=== PATIENT | male | born 1950 | race Caucasian/White ===

== ENCOUNTER → 2018-07-29 14:31 | Outpatient (CLI) | payer MEDICARE, BC, SELFPAY ==
[2018-07-29 16:06] LABS: Add Manual Diff / Slide Review NO; Basophils Percent Auto 0.5 % (0-2); Eosinophils Percent Auto 1.2 % (2-4); Hematocrit 47.1 % (41-53); Hemoglobin 16.8 g/dL (13.5-17.5); Lymphocytes Percent Auto 14.7 % (25-40); Mean Corpuscular HGB Conc 35.7 % (30-36); Mean Corpuscular Volume 97.9 fL (80-100); Monocytes Percent Auto 7.5 % (3-14); Neutrophils Absolute Auto 7200 /uL (3000-5900); Neutrophils Percent Auto 76.1 % (50-75); Platelet Count 169 X10^3/uL (150-400); Red Blood Cell Count 4.82 X10^6/uL (4.5-5.9); Red Cell Distribution Width 13.2 % (11.6-14.8); White Blood Cell Count 9.4 X10^3/uL (4.5-11.0)
[2018-07-29 16:23] LABS: Alanine Aminotransferase 65 IU/L (21-72); Albumin 4.5 g/dL (3.5-5.0); Albumin Globulin Ratio 1.7 (1.0-2.8); Alkaline Phosphatase 75 U/L (38-126); Aspartate Aminotransferase 49 IU/L (17-59); BUN Creatinine Ratio 21.7 (6-22); Bilirubin Total 0.8 mg/dL (0.2-1.3); Blood Urea Nitrogen 26 mg/dL (9-20); Calcium 9.6 mg/dL (8.4-10.2); Carbon Dioxide 31 mmol/L (22-32); Chloride 97 mmol/L (98-107); Cholesterol 202 mg/dL (140-199); Estimated Glomerular Filt Rate > 60.0 mL/min (>60); Globulin 2.6 g/dL (1.7-4.1); Glucose 97 mg/dL (80-110); HDL Cholesterol 59 mg/dL (40-60); HEMOLYSIS < 15 (0-50); LDL Cholesterol Calculated 99 mg/dL (<100); Potassium 4.2 mmol/L (3.4-5.1); Sodium 141 mmol/L (137-145); Total Protein 7.1 g/dL (6.3-8.2); Triglycerides 220 mg/dL (35-150); Uric Acid 5.9 mg/dL (3.5-8.5)
== END ==
PROVIDERS: PCP Internal Medicine; Visit Provider Internal Medicine
DX: C18.9 Malignant neoplasm of colon, unspecified (principal); M10.9 Gout, unspecified; E78.2 Mixed hyperlipidemia
CPT/HCPCS: 36415; 80053; 80061; 84550; 85025

== ENCOUNTER → 2018-12-03 09:23 | Outpatient (CLI) | payer MEDICARE, BC, SELFPAY ==
--- NOTE | 2018-12-03 | DI.MRI.S_ITS ---
PROCEDURE: MR LUMBAR SPINE WO CON INDICATIONS: LOW BACK PAIN TECHNIQUE: Noncontrast sagittal T1 spin echo and T2 fast echo, sagittal STIR, axial T1 and T2 fast spin echo through the lumbar spine. In cases with scoliosis, additional coronal T2 fast spin echo may be performed. COMPARISON: [facility], MR, L-SPINE WITHOUT CONTRAST, 06/14/2014, 11:05. FINDINGS: Image quality: Excellent. Alignment and Curvature: There is normal bony alignment. Bone Marrow: Reactive endplate changes noted adjacent the L1-L2, L2-L3, L3-L4 and L4-L5 discs. No acute vertebral body compression fractures. Spinal Cord: Conus medullaris terminates at the T12 level. Visualized cord demonstrates normal signal and size. Paraspinous Soft Tissues: No paravertebral masses. L1-L2: Loss of disc signal. Mild, diffuse disc bulge. Mild narrowing of the central canal. Mild to moderate bilateral neural foraminal narrowing. No neural impingement. L2-L3: Loss of disc signal and height. Mild, diffuse disc bulge. Mild narrowing of the central canal. Mild to moderate right and moderate left neural foraminal narrowing. No neural impingement. L3-L4: Loss of disc signal. Mild, diffuse disc bulge. Mild facet arthropathy. No central stenosis. Mild bilateral neural foraminal narrowing. No neural impingement. L4-L5: Loss of disc signal and height. Mild, diffuse disc bulge. Mild facet arthropathy. Small right central disc protrusion. Disc protrusion abuts and displaces the traversing right L5 nerve root. Mild narrowing of the central canal. Moderate right and mild to moderate left neural foraminal narrowing. L5-S1: Loss of disc signal. Mild facet arthropathy. No central stenosis. No neural foraminal narrowing. No neural impingement. IMPRESSION: 1. Multilevel degenerative disc disease and facet arthropathy. 2. Mild L1-L2, L2-L3 and L4 L5 central none. 3. Moderate right and mild to moderate left L4-L5 neural foraminal narrowing. Mild to moderate right and moderate left L2-L3 neural foraminal narrowing. Mild to moderate bilateral L1-L2 neural foraminal narrowing. Mild bilateral L3-L4 neural foraminal narrowing. 4. L4-L5 right central disc protrusion which abuts and displaces the traversing right L5 nerve root. Please correlate with clinical data. Dictated by: Charo Jalloh MD, PhD on 12/03/2018 at 13:33 Approved by: Charo Jalloh MD, PhD on 12/03/2018 at 13:42
--- NOTE | 2018-12-03 | DI.ECHO.S_ITS ---
[facility]---------+ [facility] +---------+ : : [address] : [place] : : : : [id number] : : : : Phone: [phone]+ Echocardiogram Report + + :Name: EVANGELINA GUSMAN Study Date: 12/03/2018 Height: 71 in : :[facility] Weight: 222 lb : : Gender: Male BSA: 2.2 m2 : :: 1950 Age: 68 yrs BP: 118/70 mmHg: :Reason For Study: Aortic, Ascending Aneurysm : : Performed By: Tammie Crook : :Referring: STEVEN ESTRELLA : + + Interpretation Summary 1) Normal left ventricular thickness, size, wall motion, and systolic function (EF 60-65%). 2) Normal right ventricular size and function. 3) No significant valvular abnormalities. 4) The ascending aorta is mildly enlarged at 4.0cm. Stable since prior few echos. 5) Compared to the Echo done 12/03/2016, no significant change. Procedure: A two-dimensional transthoracic echocardiogram with color flow and Doppler was performed. The study quality was technically adequate. Comparison is made with the echocardiogram of 12-03-16. The patient was in normal sinus rhythm during the exam. Left Ventricle: The left ventricle is normal in size, wall thickness, and systolic function without any focal wall motion abnormalities. The ejection fraction is estimated to be 60-65%. Diastolic parameters suggest probable normal left ventricular diastolic function and normal filling pressures. Right Ventricle: The right ventricle grossly appears normal in size with probable normal systolic function. Atria: The left atrial size is normal. Right atrial size is normal. The interatrial septum is intact with no evidence for an atrial septal defect. Mitral Valve: There is a flat closure plane of the the mitral valve leaflets. There is mild mitral regurgitation. Aortic Valve: The aortic valve is trileaflet. The aortic valve opens well. No aortic regurgitation is present. Tricuspid Valve: The tricuspid valve is normal in structure and function. There is a trace or physiologic amount of tricuspid regurgitation. The right ventricular systolic pressure is estimated to be at least 22 mmHg based on an estimated right atrial pressure of 3 mm Hg. Pulmonic Valve: The pulmonic valve is not well seen, but is grossly normal. There is trace pulmonic regurgitation. Great Vessels: The aortic root is normal size. The ascending aorta is mildly enlarged. The aortic arch is normal in size. The last thre echo measurments of the ascending aorta were, 4.0, 4.2, and 4.0 cm. The mildly enlarged ascending aorta appears stable. The inferior vena cava was not visualized. Pericardium/ Pleura There is no pericardial effusion. There is no pleural effusion. MMode/2D Measurements & Calculations LVIDd: 4.6 cm Ao root diam: 3.9 cm LVIDs: 3.4 cm Aortic Jxn: 3.3 cm FS: 27.0 % asc Aorta Diam: 4.0 cm EPSS: 0.63 cm Ao Arch Diam (Prox Trans): 2.0 cm IVSd: 0.94 cm LVPWd: 0.84 cm LV lobo. diameter/BSA (cm/m^2): 2.1 LV sys. diameter/BSA (cm/m^2): 1.5 LA dimension: 3.9 cm RA long axis: 4.3 cm LA A2 area: 19.7 cm2 RA area: 15.1 cm2 LA A4 area: 21.2 cm2 RA vol: 45.4 ml LA length (vol): 5.2 cm RA : 20.6 ml/m2 LA vol: 68.2 ml LA vol index: 30.9 ml/m2 Doppler Measurements & Calculations Ao V2 max: 144.7 cm/sec MV E max miguel: 79.1 cm/sec Ao V2 mean: 86.9 cm/sec MV A max miguel: 58.1 cm/sec Ao max P.4 mmHg MV E/A: 1.4 Ao mean P.6 mmHg Med Peak E' Miguel: 7.7 cm/sec Ao V2 VTI: 24.6 cm E/E' med: 10.3 Lat Peak E' Miguel: 8.3 cm/sec E/E' lat: 9.5 E/e' average: 9.9 MV dec time: 0.22 sec MV P1/2t: 67.3 msec TR max miguel: 219.1 cm/sec MV P1/2t max miguel: 77.8 cm/sec TR max P.2 mmHg MVA(P1/2t): 3.3 cm2 PA V2 max: 82.4 cm/sec PA V2 mean: 55.0 cm/sec PA mean P.4 mmHg PA Accel Time: 0.11 sec Reading Physician:01:34 PM
== END ==
PROVIDERS: PCP Internal Medicine; Visit Provider Internal Medicine
DX: I71.2 Thoracic aortic aneurysm, without rupture (principal); I34.0 Nonrheumatic mitral (valve) insufficiency; M54.5 Low back pain; M51.36 Other intervertebral disc degeneration, lumbar region; M48.061 Spinal stenosis, lumbar region without neurogenic claudication; M47.816 Spondylosis without myelopathy or radiculopathy, lumbar region; M47.817 Spondylosis without myelopathy or radiculopathy, lumbosacral region
CPT/HCPCS: 72148; 93306

== ENCOUNTER 2019-05-11 04:39 | Emergency (ER) | payer MEDICARE, BC, SELFPAY ==
[2019-05-11 04:40] VITALS: BP 130/96; PULSE 90; RESP 16; TEMP 36.6; O2SAT 96; BMI 30.4
--- NOTE | 2019-05-11 04:48 | ED_ITS ---
HPI - Fall General Chief Complaint: Skin/Abscess/Foreign Body Stated Complaint: needs stitches in forehead Time Seen by Provider: 05/11/19 04:45 Source: patient and family () Mode of arrival: ambulatory Limitations: no limitations History of Present Illness HPI Narrative: This is a 68-year-old male comes to the emergency department with complaint of ground level fall. Patient states that he was getting out of bed, he tripped and fell striking his forehead on a corner of a dresser. Patient did not lose consciousness, he denies headache currently, he has some pain at the site. He did clean himself of afterwards. He denies any vision changes, no nausea no vomiting. No altered mental status. He denies any new neck or new back pain. Patient has chronic back pain with radiculopathy. Patient states th at that is not worse at this time. He denies any chest pain or shortness of breath. Patient is not on any blood thinners, he does take Mobic daily. Related Data Home Medications Medication Instructions Recorded Confirmed allopurinol 100 mg tablet 200 mg PO DAILY 02/02/19 02/02/19 metoprolol succinate 100 mg 100 mg PO DAILY 02/02/19 02/02/19 tablet,extended release 24 hr cholecalciferol (vitamin D3) 10,000 unit PO DAILY 02/03/19 02/03/19 10,000 unit capsule finasteride 5 mg tablet 5 mg PO DAILY 02/03/19 02/03/19 meloxicam 15 mg tablet 15 mg PO DAILY 02/03/19 02/03/19 omeprazole 20 mg capsule,delayed 20 mg PO DAILY PRN 02/03/19 02/02/19 release Allergies Allergy/AdvReac Type Severity Reaction Status Date / Time penicillin G [PENICILLIN G] Allergy Unknown Unverified 02/03/19 13:10 Review of Systems Review of Systems ROS Unobtainable: All systems reviewed & are unremarkable except as noted in HPI and below Exam Narrative Exam Narrative: GEN: Patient appears in mild distress. HEAD: Patient has a laceration at the forehead just medial to the left brow that is 2.1 cm in length and gaps several mm. No hematoma or other skin changes are noted, no raccoon/Rm sign. NECK: Nontender, painless range of motion, trachea midline Negative for Nexus criteria, there is no mid line tenderness, distracting injury, altered mental status, neuro deficit, recent EtOH. EYES: PERRLA, EOMI ENT: External inspection normal except as above, trachea is midline, TM's are normal no hemotypanum, Nares are clear, no septal hematoma, no dental or oral injury, airway is normal and with normal occlusion, No bony tenderness to face. RESP: Chest is nontender and has symmetric movement, no ecchymosis, breath sounds are normal no crackles, wheezes or rales CVS: Heart sounds are normal, no murmur noted, No JVD. ABG/GI: Nontender, soft, normal bowel sounds, no distention, no organomegaly, pelvic rock is negative NEURO: Oriented AOx3, neuro is grossly intact, sensation and motor is normal all 4 extremities moving, cranial nerves II through XII are intact, GCS is 15. Normal gait. PSYCH: Normal mood and affect SKIN: Intact except as above, warm and dry, no crepitus and without decubitus BACK: No CVA tenderness, patient has mild L3/4 vertebral tenderness, patient states this is normal for him, no step-off's, no crepitus. Full ROM. EXT: Atraumatic, hips are nontender, no pedal edema, normal color and temperature, normal range of motion of extremities Initial Vital Signs Initial Vital Signs: Vital Signs Temperature 97.8 F 05/11/19 04:40 Pulse Rate 90 05/11/19 04:40 Respiratory Rate 16 05/11/19 04:40 Blood Pressure 130/96 H 05/11/19 04:40 Pulse Oximetry 96 05/11/19 04:40 [facility] Medical History Alcohol dependence (Chronic) GERD (gastroesophageal reflux disease) (Chronic) Gouty arthritis (Chronic) History of colon cancer in adulthood (Inactive) History of pulmonary embolism (Inactive) Hypertension (Chronic) Obstructive sleep apnea of adult (Chronic) Surgical History History of right hemicolectomy (Resolved) Social History (Updated 02/07/19 @ 21:05 by ISHAAN Mcclelland) marital status: details: to Patricia, lives in [place] number of children: 3 household members: spouse lives independently: Yes caregiver/support person: No housing: house education level: other occupational status: unemployed 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 leisure activities: other other: I have a passion for maddie seatbelt use: always alcohol intake: current caffeine: Yes (1 cup in AM) Social History marital status: details: milly Gomez, lives in [place] number of children: 3 household members: spouse lives independently: Yes caregiver/support person: No housing: house education level: other occupational status: unemployed 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 leisure activities: other other: I have a passion for maddie seatbelt use: always Smoking Status: Never smoker alcohol intake: current caffeine: Yes (1 cup in AM) Procedures Laceration Repair Laceration 1: Site: face Size (cm): 2.1 Description: linear Depth: simple, single layer Local Anesthetic: lidocaine 1% Amount of anesthesia used (mL): 3 Pre-repair: wound explored, irrigated extensively and deep structures intact Skin layer closed with: vicryl Size (cm): 5-0 Number of sutures: 5 Technique: simple, interrupted Scores GCS Terell coma scale eye opening: Spontaneous [place] coma scale verbal response: Orientated [place] coma scale motor response: Obey commands [place] coma scale total score: 15 Course Orders Ordered: Discontinued Medications Lidocaine/Sodium Bicarbonate (Buffered Lidocaine 10 Ml Syr) 10 ml INJ NOW ONE Stop: 05/11/19 04:57 Last Admin: 05/11/19 05:33 Dose: 3 ml Documented by: ABDIRASHID Vital Signs Vital signs: Vital Signs - 8 hr 05/11/19 04:40 Temperature 97.8 F Pulse Rate 90 Respiratory Rate 16 Blood Pressure 130/96 H Pulse Oximetry 96 MDM - Fall MDM Narrative Medical decision making narrative: Patient tolerated procedure well, he is not on thinners and has laceration, CT imaging was deferred. patient had tenderness on palpation of lumbar spine, patient states this is normal for him and not wor sened from baseline. Patient has normal gait with no neurologic changes. Laceration was repaired with good alignment. Patient has home pain medications and discussed wound care and follow up. Discharge Plan Departure Patient Disposition: Home Clinical Impression: Facial laceration Discharge Date/Time: 05/11/19 05:39 Instructions: DI for Laceration Repair -- Simple Activity Restrictions/Additional Instructions: Wound Care: Keep wound(s) clean and dry. Wash daily with soap and water only. Do not use over the counter products (alcohol or peroxide)on the wounds unless instructed by a physician. If wound condition worsens (increased/expanding redness, developing fluid blisters, or worsening pain), either contact your doctor for an urgent re- assessment , or return to the Emergency Department. Return to the ED, urgent care, or vist a primary care doctor for removal or suture or colleen in 5-7 days if they are not absorbing. Return if fever greater than 100.4 Fahrenheit, increased swelling, increasing pain or worsening symptoms such as increased discharge or spreading redness. Altered mental status, sudden severe headaches, new vision changes, persistent vomiting, new neck or back pain, new weakness or numbness, loss of sensation that is new or other new or concerning symptoms. Prescriptions: No Action metoprolol succinate 100 mg tablet extended release 24 hr 100 mg PO DAILY RF: 0 allopurinol 100 mg tablet 200 mg PO DAILY RF: 0 omeprazole 20 mg capsule,delayed release(DR/EC) 20 mg PO DAILY PRNRF: 0 cholecalciferol (vitamin D3) 10,000 unit capsule 10,000 unit PO DAILY RF: 0 finasteride 5 mg tablet 5 mg PO DAILY RF: 0 meloxicam [Mobic] 15 mg tablet 15 mg PO DAILY RF: 0 Referrals: Lorenzo Coreas MD [Primary Care Provider] -
--- NOTE | 2019-05-11 05:16 | PC.NURSE ---
Dr. Hopper at bedside to suture.
[2019-05-11] MEDS: LIDO 1%/SOD BICARB 8.4% (10ML) 10 ML SYRINGE INJ (05:33)
[2019-05-11 05:39] VITALS: BP 128/68; PULSE 75; RESP 16; O2SAT 96
== END 2019-05-11 05:39 | disposition home or self-care (01) ==
PROVIDERS: Emergency Provider Emergency Medicine; PCP Internal Medicine
DX: S01.81XA Laceration without foreign body of other part of head, initial encounter (principal); W01.190A Fall on same level from slipping, tripping and stumbling with subsequent striking against furniture, initial encounter
CPT/HCPCS: 12011; 99282; 99283

== ENCOUNTER → 2019-05-13 16:00 | Outpatient (CLI) | payer MEDICARE, BC, SELFPAY ==
--- NOTE | 2019-05-13 | DI.RAD.S_ITS ---
PROCEDURE: XR HIP W PEL IF DONE LT MIN 4V INDICATIONS: Pain in HAR[place] hips TECHNIQUE: AP pelvis with lateral view(s) of the left and right hip(s). COMPARISON: None. FINDINGS: Bones: No fractures or dislocations. Pelvic ring appears intact. No suspicious bony lesions. Mild joint narrowing with periarticular osteophyte formation of the hip joints bilaterally. Degenerative disc and facet disease involves the inferior lumbar spine. Soft tissues: The visualized bowel gas pattern is normal. No suspicious soft tissue calcifications. Vastectomy clips. IMPRESSION: Mild symmetric hip joint degeneration. Dictated by: Kenton KEBEDE Interpreted: Mattie Garcia MD on 05/13/2019 at 16:24 Approved by: Mattie Garcia M.D. on 05/13/2019 at 16:50
== END ==
PROVIDERS: PCP Internal Medicine; Visit Provider Internal Medicine
DX: M25.551 Pain in right hip (principal); M25.552 Pain in left hip; M16.0 Bilateral primary osteoarthritis of hip
CPT/HCPCS: 73522

== ENCOUNTER 2019-08-16 12:18 | Emergency (ER) | payer MEDICARE, BC, SELFPAY ==
[2019-08-16] VITALS (10 sets, daily range): BP systolic 92–120; BP diastolic 44–69; PULSE 70–90; RESP 13–24; TEMP 36.8; O2SAT 94–99
--- NOTE | 2019-08-16 13:04 | DI.RAD.S_ITS ---
PROCEDURE: XR CHEST 2V INDICATIONS: shortness of breath TECHNIQUE: 2 views of the chest were acquired. COMPARISON: None. FINDINGS: Surgical changes and devices: None. Lungs and pleura: Calcific density projects over the left lower lung. Lungs are otherwise clear. No pleural effusions or pneumothorax. Mediastinum: Mediastinal contours are normal. Heart size is normal. Bones and chest wall: No suspicious bony abnormalities. Soft tissues appear unremarkable. IMPRESSION: No acute process. Dictated by: Rachelle Kelsey M.D. on 08/16/2019 at 13:41 Approved by: Rachelle Kelsey M.D. on 08/16/2019 at 13:42
[2019-08-16 13:28] LABS: Add Manual Diff / Slide Review NO; Basophils Absolute Auto 0 /uL (0-100); Basophils Percent Auto 0.3 % (0-2); Eosinophils Absolute Auto 100 /uL (0-450); Eosinophils Percent Auto 0.8 % (2-4); Hematocrit 46.4 % (41-53); Hemoglobin 16.1 g/dL (13.5-17.5); Lymphocytes Absolute Auto 1200 /uL (1100-4500); Lymphocytes Percent Auto 14.6 % (25-40); Mean Corpuscular HGB Conc 34.7 % (30-36); Mean Corpuscular Hemoglobin 34.3 PG (26-34); Mean Corpuscular Volume 98.8 fL (80-100); Monocytes Absolute Auto 500 /uL (0-900); Monocytes Percent Auto 6.3 % (3-14); Neutrophils Absolute Auto 6600 /uL (1500-7000); Platelet Count 158 X10^3/uL (150-400); Red Cell Distribution Width 13.3 % (11.6-14.8); White Blood Cell Count 8.4 X10^3/uL (4.5-11.0)
[2019-08-16 13:37] LABS: Lactate (Lactic Acid) 1.8 mmol/L (0.7-2.1)
--- NOTE | 2019-08-16 13:41 | ED_ITS ---
HPI - General Adult General Chief complaint: Dizziness Stated complaint: SOB DIZZY Time Seen by Provider: 08/16/19 13:16 Source: patient Mode of arrival: Ambulatory History of Present Illness HPI narrative: 68-year-old gentleman with a history of resected colon cancer with associated pulmonary embolism 10 years ago, hypertension, alcohol use disorder and erectile dysfunction. This morning after taking Viagra approximately 2 hours later noted significant exertional dyspnea. He and his were working in the [employer] he became quite short of breath had to sit down to approximately 10-15 minutes to feel like he was back to normal couple of episodes of recurrence is without chest pain or diaphoresis. He states that the dyspneic sensation was worse today than it was when he had his pulmonary embolism a number of years ago. When he presents to the emergency department he is relatively hypotensive with a systolic blood pressure in the 90s, in normal sinus rhythm, maintaining his airway and able to speak in full sentences and give a coherent history Related Data Home Medications Medication Instructions Recorded Confirmed allopurinol 100 mg tablet 200 mg PO DAILY 02/02/19 08/16/19 metoprolol succinate 100 mg 100 mg PO DAILY 02/02/19 08/16/19 tablet,extended release 24 hr cholecalciferol (vitamin D3) 10,000 unit PO DAILY 02/03/19 08/16/19 10,000 unit capsule finasteride 5 mg tablet 5 mg PO DAILY 02/03/19 08/16/19 omeprazole 20 mg capsule,delayed 20 mg PO DAILY PRN 02/03/19 08/16/19 release olmesartan-hydrochlorothiazide 1 tab PO DAILY 08/16/19 08/16/19 sildenafil (pulm.hypertension) 40 mg PO DIRECTED 08/16/19 08/16/19 Allergies Allergy/AdvReac Type Severity Reaction Status Date / Time penicillin G [PENICILLIN G] Allergy Unknown Unverified 02/03/19 13:10 Review of Systems Review of Systems Narrative: Denies ? fever ? cough ? cold ? chills ? chest pain ? orthopnea ? wheezing ? abdominal pain ? change to bowel or bladder habits ? nausea vomiting ? skin changes ? 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 Able to give a complete and coherent history. Well-nourished well-developed HEENT: Moist mucous membranes, normal sclera with reactive pupils, Neck: No JVD, supple Respiratory: Lungs are clear to auscultation, no wheezing no rales no rhonchi. Full and symmetrical air movement Cardiac: Regular rate and rhythm no murmurs no bruits Abdomen: Soft nontender good bowel tones, no flank pain Skin: Warm and dry, no rashes Neurologic: Grossly neurologically intact with no obvious asymmetries or abnormalities Extremities: No trauma, well perfused Psych: Cooperative, appropriate insight and affect Initial Vital Signs Initial Vital Signs: Vital Signs Temperature 98.2 F 08/16/19 12:45 Pulse Rate 90 08/16/19 12:45 Respiratory Rate 13 08/16/19 12:45 Blood Pressure 95/56 L 08/16/19 12:45 Pulse Oximetry 99 08/16/19 12:45 Course Orders Ordered: ED Orders 08/16/19 13:04 XR chest 2V Stat Measure peak expiratory flow ONCE RT Consult Eval and Treat Now 08/16/19 13:07 EKG-12 Lead Stat 08/16/19 13:12 Complete Blood Count AUTO DIFF Stat Comprehensive Metabolic Panel Stat Lactate (Lactic Acid) Stat 08/16/19 13:17 D Dimer Stat Troponin I Stat 08/16/19 15:32 Troponin I Stat Discontinued Medications Sodium Chloride (Normal Saline 0.9%) 500 mls @ 1,000 mls/hr IV BOLUS ONE Stop: 08/16/19 16:20 Last Admin: 08/16/19 16:08 Dose: Not Given Documented by: HFARRINGTO Sodium Chloride (Normal Saline 0.9%) 1,000 mls @ 1,000 mls/hr IV BOLUS ONE Stop: 08/16/19 17:03 Last Infusion: 08/16/19 17:15 Dose: 0 mls/hr Documented by: Admin: 08/16/19 16:05 Dose: 1,000 mls/hr Documented by: JADON Vital Signs Vital signs: Vital Signs - 8 hr 08/16/19 12:45 08/16/19 13:22 08/16/19 13:30 Temperature 98.2 F Pulse Rate 90 87 84 Respiratory Rate 13 24 18 Blood Pressure 95/56 L Blood Pressure [Left Arm] 114/69 93/49 L Pulse Oximetry 99 98 96 08/16/19 14:00 08/16/19 15:30 08/16/19 15:37 Temperature Pulse Rate 76 74 73 Respiratory Rate 19 20 15 Blood Pressure Blood Pressure [Left Arm] 100/44 L 108/54 L 108/54 L Pulse Oximetry 98 98 97 08/16/19 16:09 08/16/19 16:59 08/16/19 17:01 Temperature Pulse Rate 76 70 74 Respiratory Rate 21 19 18 Blood Pressure Blood Pressure [Left Arm] 120/62 102/58 L 92/44 L Pulse Oximetry 98 98 97 Medical Decision Making Medical Records Medical records reviewed: Yes I reviewed the patient's medical records. Lab Data Lab results reviewed: Yes I reviewed the patient's lab results. Lab results narrative: Worsening renal insufficiency increasing from 0.9-1.2 current 1.7 Initial Troponin is normal D-dimer is 208, suggesting low risk CT chest angio is not necessary Result diagrams: 08/16/19 13:12 08/16/19 13:12 Labs: Lab Results 08/16/19 08/16/19 08/16/19 Range/Units 13:12 13:12 13:12 WBC 8.4 (4.5-11.0) X10^3/uL RBC 4.70 (4.5-5.9) X10^6/uL Hgb 16.1 (13.5-17.5) g/dL Hct 46.4 (41-53) % MCV 98.8 (80-100) fL MCH 34.3 H (26-34) PG MCHC 34.7 (30-36) % RDW 13.3 (11.6-14.8) % Plt Count 158 (150-400) X10^3/uL Neut % (Auto) 78.0 H (50-75) % Lymph % (Auto) 14.6 L (25-40) % Pinal % (Auto) 6.3 (3-14) % Eos % (Auto) 0.8 L (2-4) % Baso % (Auto) 0.3 (0-2) % Neut # (Auto) 6600 (4679-0758) /uL Lymph # (Auto) 1200 (8402-3972) /uL Pinal # (Auto) 500 (0-900) /uL Eos # (Auto) 100 (0-450) /uL Baso # (Auto) 0 (0-100) /uL D-Dimer (<230) ng/mL Sodium 139 (137-145) mmol/L Potassium 4.4 (3.4-5.1) mmol/L Chloride 99 (98-107) mmol/L Carbon Dioxide 32 (22-32) mmol/L BUN 28 H (9-20) mg/dL Creatinine 1.70 H (0.66-1.25) mg/dL Estimated GFR 40.4 L (>60) mL/min BUN/Creatinine Ratio 16.5 (6-22) Glucose 108 (80-110) mg/dL Lactate 1.8 (0.7-2.1) mmol/L Calcium 9.7 (8.4-10.2) mg/dL Total Bilirubin 0.7 (0.2-1.3) mg/dL AST 56 (17-59) IU/L ALT 66 H (<50) IU/L Alkaline Phosphatase 77 (38-126) U/L Troponin I (0.01-0.034) ng/mL Total Protein 7.1 (6.3-8.2) g/dL Albumin 4.4 (3.5-5.0) g/dL Globulin 2.7 (1.7-4.1) g/dL Albumin/Globulin Ratio 1.6 (1.0-2.8) 08/16/19 08/16/19 08/16/19 Range/Units 13:17 13:17 15:32 WBC (4.5-11.0) X10^3/uL RBC (4.5-5.9) X10^6/uL Hgb (13.5-17.5) g/dL Hct (41-53) % MCV (80-100) fL MCH (26-34) PG MCHC (30-36) % RDW (11.6-14.8) % Plt Count (150-400) X10^3/uL Neut % (Auto) (50-75) % Lymph % (Auto) (25-40) % Pinal % (Auto) (3-14) % Eos % (Auto) (2-4) % Baso % (Auto) (0-2) % Neut # (Auto) (1328-1763) /uL Lymph # (Auto) (9783-8263) /uL Pinal # (Auto) (0-900) /uL Eos # (Auto) (0-450) /uL Baso # (Auto) (0-100) /uL D-Dimer 208 (<230) ng/mL Sodium (137-145) mmol/L Potassium (3.4-5.1) mmol/L Chloride (98-107) mmol/L Carbon Dioxide (22-32) mmol/L BUN (9-20) mg/dL Creatinine (0.66-1.25) mg/dL Estimated GFR (>60) mL/min BUN/Creatinine Ratio (6-22) Glucose (80-110) mg/dL Lactate (0.7-2.1) mmol/L Calcium (8.4-10.2) mg/dL Total Bilirubin (0.2-1.3) mg/dL AST (17-59) IU/L ALT (<50) IU/L Alkaline Phosphatase (38-126) U/L Troponin I < 0.012 < 0.012 (0.01-0.034) ng/mL Total Protein (6.3-8.2) g/dL Albumin (3.5-5.0) g/dL Globulin (1.7-4.1) g/dL Albumin/Globulin Ratio (1.0-2.8) Imaging Data Chest x-ray: Radiologist's impression: IMPRESSION: No acute process. Dictated by: Rachelle Kelsey M.D. on 08/16/2019 at 13:41 MDM Narrative Medical decision making narrative: 68-year-old gentleman presents with 3 episodes of exertional dyspnea this morning after taking Viagra followed by his typical blood pressure medications ( none of which involved nitrates). Workup for acute coronary syndrome as well as pulmonary embolism is benign. He currently is seeing his outpatient physician regarding worsening renal insufficiency and his creatinine has increased from 1.2-1.7. He is not orthostatic he is no longer dyspneic and remainder of workup is unremarkable. He is safe for home discharge and has a scheduled appointment with his primary care physician tomorrow morning Discharge Plan Departure Patient Disposition: Home Clinical Impression: Exertional dyspnea Instructions: DI for Shortness of Breath Activity Restrictions/Additional Instructions: Thank you for coming in today. It sounds like these episodes of exertional dyspnea earlier today were quite disconcerting. I found no life-threatening issues with your workup today. Specifically there is no evidence of recurrence pulmonary embolism and no evidence of acute heart attack or coronary type syndrome. There is no significant anemia nor dehydration. Your renal function has worsened slightly. You do have appropriate follow-up with your primary care doctor regarding this. At this time I think it is safe for you to go home. Please review your visit with Dr. Coreas at her scheduled appointment tomorrow. I wish you luck in the continued workup of the renal insufficiency We did briefly discuss your alcohol use disorder. There is a medicine called Vivitrol (naltrexone) that can help decrease cravings for alcohol and help maintain longer periods of sobriety. I would encourage you to look this up and do your own research. Please discuss it with Dr. Coreas. lf you need help finding another clinic to discuss beginning a course of Vivitrol, you can contact [facility]. They have offices in [place] as well as [place]. The phone number to reach them is [phone] If you have her current symptoms, developed any chest pain, fevers or persistent palpitations or dyspnea please feel free to return to the emergency department. I am happy to re-evaluate. It was a pleasure to meet you and I hope you do well Prescriptions: No Action olmesartan-hydrochlorothiazide 20-12.5 mg tablet 1 tab PO DAILY RF: 0 sildenafil (pulm.hypertension) 20 mg Tablet 40 mg PO DIRECTED RF: 0 metoprolol succinate 100 mg tablet extended release 24 hr 100 mg PO DAILY RF: 0 allopurinol 100 mg tablet 200 mg PO DAILY RF: 0 omeprazole 20 mg capsule,delayed release(DR/EC) 20 mg PO DAILY PRN (Reason: Acid Reflux) RF: 0 cholecalciferol (vitamin D3) 10,000 unit capsule 10,000 unit PO DAILY RF: 0 finasteride 5 mg tablet 5 mg PO DAILY RF: 0 Referrals: Lorenzo Coreas MD [Primary Care Provider] -
[2019-08-16 13:47] LABS: Alanine Aminotransferase 66 IU/L (<50); Albumin 4.4 g/dL (3.5-5.0); Albumin Globulin Ratio 1.6 (1.0-2.8); Alkaline Phosphatase 77 U/L (38-126); Aspartate Aminotransferase 56 IU/L (17-59); BUN Creatinine Ratio 16.5 (6-22); Bilirubin Total 0.7 mg/dL (0.2-1.3); Blood Urea Nitrogen 28 mg/dL (9-20); Calcium 9.7 mg/dL (8.4-10.2); Carbon Dioxide 32 mmol/L (22-32); Chloride 99 mmol/L (98-107); Estimated Glomerular Filt Rate 40.4 mL/min (>60); Globulin 2.7 g/dL (1.7-4.1); Glucose 108 mg/dL (80-110); HEMOLYSIS < 15 (0-50); Potassium 4.4 mmol/L (3.4-5.1); Sodium 139 mmol/L (137-145); Total Protein 7.1 g/dL (6.3-8.2)
--- NOTE | 2019-08-16 13:58 | PC.NURSE ---
Patient disclosed during assessment that he took two Viagra tablets just prior to the start of symptoms
[2019-08-16 14:12] LABS: D Dimer 208 ng/mL (<230)
[2019-08-16 14:25] LABS: Troponin I < 0.012 ng/mL (0.01-0.034)
[2019-08-16] MEDS: SODIUM CHLORIDE 0.9% 1,000 ML 1000 ML IV (16:05)
[2019-08-16 16:06] LABS: Troponin I < 0.012 ng/mL (0.01-0.034)
== END 2019-08-16 18:25 | disposition home or self-care (01) ==
PROVIDERS: Emergency Provider Emergency Medicine; PCP Internal Medicine
DX: R06.00 Dyspnea, unspecified (principal); R42 Dizziness and giddiness; I95.9 Hypotension, unspecified
CPT/HCPCS: 36415; 71046; 80053; 83605; 84484; 85025; 85379; 93005; 93010; 93041; 96360; 99285

== ENCOUNTER → 2019-08-25 12:58 | Outpatient (CLI) | payer MEDICARE, BC, SELFPAY ==
[2019-08-25 15:00] LABS: Blood Urea Nitrogen 17 mg/dL (9-20); Calcium 9.1 mg/dL (8.4-10.2); Carbon Dioxide 29 mmol/L (22-32); Chloride 102 mmol/L (98-107); Estimated Glomerular Filt Rate > 60.0 mL/min (>60); Glucose 96 mg/dL (80-110); Sodium 139 mmol/L (137-145)
[2019-08-25 15:03] LABS: HEMOLYSIS 123 (0-50)
[2019-08-25 15:04] LABS: Potassium 4.3 mmol/L (3.4-5.1)
== END ==
PROVIDERS: PCP Internal Medicine; Visit Provider Internal Medicine
DX: N17.9 Acute kidney failure, unspecified (principal)
CPT/HCPCS: 36415; 80048

== ENCOUNTER → 2020-08-08 12:35 | Outpatient (CLI) | payer MEDICARE, BC, SELFPAY ==
[2020-08-08 14:38] LABS: Add Manual Diff / Slide Review NO; Basophils Absolute Auto 0 /uL (0-100); Basophils Percent Auto 0.6 % (0-2); Eosinophils Absolute Auto 100 /uL (0-450); Eosinophils Percent Auto 1.9 % (2-4); Hematocrit 49.4 % (41-53); Lymphocytes Absolute Auto 1600 /uL (1100-4500); Lymphocytes Percent Auto 24.5 % (25-40); Mean Corpuscular HGB Conc 34.4 % (30-36); Mean Corpuscular Hemoglobin 34.2 PG (26-34); Mean Corpuscular Volume 99.4 fL (80-100); Monocytes Absolute Auto 500 /uL (0-900); Monocytes Percent Auto 7.1 % (3-14); Neutrophils Absolute Auto 4200 /uL (1500-7000); Neutrophils Percent Auto 65.9 % (50-75); Platelet Count 120 X10^3/uL (150-400); Red Blood Cell Count 4.97 X10^6/uL (4.5-5.9); Red Cell Distribution Width 13.3 % (11.6-14.8); White Blood Cell Count 6.3 X10^3/uL (4.5-11.0)
[2020-08-08 14:59] LABS: Alanine Aminotransferase 77 IU/L (<50); Albumin 4.2 g/dL (3.5-5.0); Albumin Globulin Ratio 1.6 (1.0-2.8); Alkaline Phosphatase 92 U/L (38-126); Aspartate Aminotransferase 71 IU/L (17-59); Bilirubin Total 1.1 mg/dL (0.2-1.3); Blood Urea Nitrogen 10 mg/dL (9-20); Calcium 9.3 mg/dL (8.4-10.2); Carbon Dioxide 32 mmol/L (22-32); Chloride 99 mmol/L (98-107); Cholesterol 199 mg/dL (140-199); Estimated Glomerular Filt Rate > 60.0 mL/min (>60); Gamma Glutamyl Transpeptidase 208 U/L (15-73); Globulin 2.7 g/dL (1.7-4.1); Glucose 118 mg/dL (80-110); HDL Cholesterol 53 mg/dL (40-60); HEMOLYSIS 17 (0-50); LDL Cholesterol Calculated 116 mg/dL (<100); Potassium 3.2 mmol/L (3.4-5.1); Sodium 136 mmol/L (137-145); Total Protein 6.9 g/dL (6.3-8.2); Triglycerides 151 mg/dL (35-150); Uric Acid 4.6 mg/dL (3.5-8.5)
[2020-08-08 15:25] LABS: Prostate Specific Antigen 0.127 ng/mL (0.10-4.00)
[2020-08-08 15:26] LABS: TSH w/ Reflex to FT4 3.37 uIU/mL (0.47-4.68)
== END ==
PROVIDERS: PCP Internal Medicine; Referring Provider Internal Medicine; Visit Provider Internal Medicine
DX: C18.9 Malignant neoplasm of colon, unspecified (principal); E78.2 Mixed hyperlipidemia; N40.0 Benign prostatic hyperplasia without lower urinary tract symptoms; M10.9 Gout, unspecified
CPT/HCPCS: 36415; 80053; 80061; 82977; 84153; 84443; 84550; 85025

== ENCOUNTER → 2020-11-14 12:27 | Outpatient (CLI) | payer MEDICARE, BC, SELFPAY ==
[2020-11-14] MEDS: COVID-19 VACC #1, MRNA(MOD) 100 MCG/0.5 ML VIAL IM (12:59)
== END ==
PROVIDERS: PCP Internal Medicine; Visit Provider Internal Medicine
DX: Z23 Encounter for immunization (principal)
CPT/HCPCS: 0011A; 91301

== ENCOUNTER → 2020-12-12 12:27 | Outpatient (CLI) | payer MEDICARE, BC, SELFPAY ==
[2020-12-12] MEDS: COVID-19 VACC #2, MRNA(MOD) 100 MCG/0.5 ML VIAL IM (12:36)
== END ==
PROVIDERS: PCP Internal Medicine; Visit Provider Internal Medicine
DX: Z23 Encounter for immunization (principal)
CPT/HCPCS: 0012A; 91301

== ENCOUNTER → 2021-01-02 13:35 | Outpatient (CLI) | payer MEDICARE, BC, SELFPAY ==
--- NOTE | 2021-01-02 | DI.ECHO.S_ITS ---
[facility]---------+ [facility] +---------+ : : [address] : [place] : : : : [id number] : : : : Phone: [phone] Echocardiogram Report + + :Name: EVANGELINA GUSMAN Study Date: 01/02/2021 Height: 71.5 in: :[facility] ReadingLocation: Weight: 215 lb : : Gender: Male BSA: 2.2 m2 : :: 1950 Age: 70 yrs BP: 142/76 mmHg: :Reason For Study: AORTIC ANEURYSM : :Ordering Physician: DELORES, : :STEVEN Performed By: Caryn Hussein : :Referring: STEVEN ESTRELLA : + + Interpretation Summary 1) Normal left ventricular thickness, size, wall motion, and systolic function (EF 60-65%). 2) Normal right ventricular size and function. 3) No significant valvular abnormalities. 4) The ascending aorta is mildly enlarged at 4.0cm. Stable since prior few echos. 5) Compared to the Echo done 12/03/2018, no significant change. Procedure: A two-dimensional transthoracic echocardiogram with color flow and Doppler was performed. The study quality was technically adequate. Comparison is made with the echocardiogram of 12/03/2018. The patient was in sinus rhythm with heart rates between 74-89 bpm during the exam. Left Ventricle: The left ventricle is normal in size and wall thickness. The ejection fraction is estimated to be 60-65%. Diastolic parameters suggest probable normal left ventricular diastolic function and normal filling pressures. Right Ventricle: The right ventricle is normal in size and function. Atria: Both atria are normal in size. There is no Doppler evidence for an interatrial shunt. Mitral Valve: The mitral valve is normal in structure and function. There is trace mitral regurgitation. Aortic Valve: The aortic valve is trileaflet. The aortic valve opens well. There is no aortic valve stenosis. No aortic regurgitation is present. Tricuspid Valve: The tricuspid valve is normal in structure and function. Pulmonary artery pressures cannot be estimated because of the lack of a measurable TR jet velocity but the IVC suggests a CVP of around 3 mmHg. No tricuspid regurgitation. Pulmonic Valve: The pulmonic valve leaflets are thin and pliable; valve motion is normal. There is mild pulmonic regurgitation. Great Vessels: The aortic root is normal size. The ascending aorta is mildly enlarged. The IVC is of normal diameter and collapses greater than 50% with a sniff. This suggests a low right atrial pressure of 3 mm Hg. Pericardium/ Pleura There is no pericardial effusion. There is no pleural effusion. MMode/2D Measurements & Calculations LVIDd: 4.6 cm LVOT diam: 2.1 cm LVIDs: 2.9 cm Ao root diam: 3.3 cm FS: 38.0 % asc Aorta Diam: 4.0 cm EPSS: 0.74 cm IVSd: 0.96 cm LVPWd: 1.1 cm LV lobo. diameter/BSA (cm/m^2): 2.1 LV sys. diameter/BSA (cm/m^2): 1.3 LA A2 area: 16.8 cm2 RA long axis: 4.6 cm LA A4 area: 14.7 cm2 RA area: 12.6 cm2 LA length (vol): 5.0 cm RA vol: 29.4 ml LA vol: 42.5 ml RA : 13.5 ml/m2 LA vol index: 19.5 ml/m2 IVC diam: 1.2 cm RVD1 (basal): 3.3 cm TAPSE: 1.7 cm Doppler Measurements & Calculations Ao V2 max: 136.4 cm/sec LVOT Max Miguel: 124.6 cm/sec Ao V2 mean: 86.7 cm/sec LV V1 max P.2 mmHg Ao max P.4 mmHg LV V1 VTI: 23.5 cm Ao mean P.6 mmHg MARJAN(I,D): 3.0 cm2 Ao V2 VTI: 26.7 cm MARJAN(V,D): 3.1 cm2 sev ratio: 0.88 MARJAN indexed to BSA (cm^2/m^2): 1.4 MV E max miguel: 88.5 cm/sec PA V2 max: 89.1 cm/sec MV A max miguel: 76.6 cm/sec PA V2 mean: 59.6 cm/sec MV E/A: 1.2 PA mean P.6 mmHg Med Peak E' Miguel: 10.7 cm/sec PA pr(Accel): 39.6 mmHg E/E' med: 8.3 Lat Peak E' Miguel: 10.9 cm/sec E/E' lat: 8.1 E/e' average: 8.2 MV dec time: 0.25 sec SV(LVOT): 79.8 ml Reading Physician:05:07 PM
== END ==
PROVIDERS: PCP Internal Medicine; Referring Provider Internal Medicine; Visit Provider Internal Medicine
DX: I71.9 Aortic aneurysm of unspecified site, without rupture (principal); I37.1 Nonrheumatic pulmonary valve insufficiency; I77.89 Other specified disorders of arteries and arterioles
CPT/HCPCS: 93306

== ENCOUNTER → 2021-02-07 15:37 | Outpatient (ROUT) | payer MEDICARE, BC, SELFPAY ==
[2021-02-07 15:53] LABS: Add Manual Diff / Slide Review NO; Basophils Absolute Auto 0 /uL (0-100); Basophils Percent Auto 0.2 % (0-2); Eosinophils Absolute Auto 100 /uL (0-450); Eosinophils Percent Auto 2.4 % (2-4); Hematocrit 51.6 % (41-53); Hemoglobin 17.6 g/dL (13.5-17.5); Lymphocytes Absolute Auto 1400 /uL (1100-4500); Lymphocytes Percent Auto 24.1 % (25-40); Mean Corpuscular HGB Conc 34.1 % (30-36); Mean Corpuscular Hemoglobin 34.7 PG (26-34); Mean Corpuscular Volume 101.8 fL (80-100); Monocytes Absolute Auto 500 /uL (0-900); Monocytes Percent Auto 8.4 % (3-14); Neutrophils Absolute Auto 3700 /uL (1500-7000); Neutrophils Percent Auto 64.9 % (50-75); Platelet Count 113 X10^3/uL (150-400); Red Blood Cell Count 5.07 X10^6/uL (4.5-5.9); Red Cell Distribution Width 13.6 % (11.6-14.8); White Blood Cell Count 5.7 X10^3/uL (4.5-11.0)
[2021-02-07 16:28] LABS: Alanine Aminotransferase 79 IU/L (<50); Albumin Globulin Ratio 1.4 (1.0-2.8); Alkaline Phosphatase 93 U/L (38-126); Aspartate Aminotransferase 86 IU/L (17-59); Bilirubin Total 1.6 mg/dL (0.2-1.3); Blood Urea Nitrogen 9 mg/dL (9-20); Calcium 9.8 mg/dL (8.4-10.2); Carbon Dioxide 29 mmol/L (22-32); Chloride 99 mmol/L (98-107); Estimated Glomerular Filt Rate > 60.0 mL/min (>60); Gamma Glutamyl Transpeptidase 196 U/L (15-73); Globulin 2.9 g/dL (1.7-4.1); Glucose 103 mg/dL (80-110); HEMOLYSIS < 15 (0-50); Potassium 3.7 mmol/L (3.4-5.1); Sodium 135 mmol/L (137-145); Total Protein 6.9 g/dL (6.3-8.2)
== END ==
PROVIDERS: PCP Internal Medicine; Visit Provider Internal Medicine
DX: C18.9 Malignant neoplasm of colon, unspecified (principal)
CPT/HCPCS: 80053; 82977; 85025

== ENCOUNTER → 2021-02-14 14:40 | Outpatient (CLI) | payer MEDICARE, BC, SELFPAY ==
[2021-02-14 16:43] LABS: Vitamin B12 374 pg/mL (239-931)
== END ==
PROVIDERS: PCP Internal Medicine; Referring Provider Internal Medicine; Visit Provider Internal Medicine
DX: E53.8 Deficiency of other specified B group vitamins (principal); E03.9 Hypothyroidism, unspecified; C18.9 Malignant neoplasm of colon, unspecified
CPT/HCPCS: 36415; 82607; 84443

== ENCOUNTER 2021-10-01 00:36 | Emergency (ER) | payer MEDICARE, BC, SELFPAY ==
[2021-10-01] VITALS (9 sets, daily range): BP systolic 132–168; BP diastolic 77–93; PULSE 80–117; RESP 17–25; TEMP 36.9; O2SAT 93–99; BMI 31.1
[2021-10-01 01:38] LABS: Add Manual Diff / Slide Review NO; Basophils Absolute Auto 0 /uL (0-100); Basophils Percent Auto 0.4 % (0-2); Eosinophils Absolute Auto 0 /uL (0-450); Eosinophils Percent Auto 0.1 % (2-4); Hematocrit 50.9 % (41-53); Hemoglobin 17.6 g/dL (13.5-17.5); Lymphocytes Absolute Auto 300 /uL (1100-4500); Lymphocytes Percent Auto 2.8 % (25-40); Mean Corpuscular HGB Conc 34.6 % (30-36); Mean Corpuscular Hemoglobin 34.2 PG (26-34); Mean Corpuscular Volume 98.9 fL (80-100); Monocytes Absolute Auto 200 /uL (0-900); Monocytes Percent Auto 2.2 % (3-14); Neutrophils Absolute Auto 9400 /uL (1500-7000); Neutrophils Percent Auto 94.5 % (50-75); Platelet Count 126 X10^3/uL (150-400); Red Blood Cell Count 5.14 X10^6/uL (4.5-5.9); Red Cell Distribution Width 13.3 % (11.6-14.8); White Blood Cell Count 9.9 X10^3/uL (4.5-11.0)
--- NOTE | 2021-10-01 01:39 | ED.NAVMDI ---
HPI - Nausea/Vomiting/Diarrhea General Chief complaint: Abdominal Pain Stated complaint: v/d/n x1 day Time Seen by Provider: 10/01/21 01:07 Source: family Mode of arrival: Ambulatory History of Present Illness HPI Narrative: 71-year-old male nonsmoker with history of recurrent colon cancer and hypertension presents with a chief complaint of increasing nausea, vomiting, abdominal discomfort and diarrhea over the course of the day. He denies any fever or chills. His symptoms improved significantly after a large episode of emesis just prior to his arrival. He denies any new medications but states he had a few alcoholic beverages yesterday which is not normal for him. He denies any bad food or recent antibiotics. He denies any runny nose, sore throat or cough. Other than that which is previously stated he denies any obvious provocation or palliation. He denies any radiation of his discomfort. He states that it was quite sharp, crampy and intense, to a maximum of 7/10 prior to his last episode of emesis but that is now improved significantly and is almost going to Related Data Home Medications Medication Instructions Recorded Confirmed allopurinol 100 mg tablet 200 mg PO DAILY 02/02/19 08/16/19 metoprolol succinate 100 mg 100 mg PO DAILY 02/02/19 08/16/19 tablet,extended release 24 hr cholecalciferol (vitamin D3) 250 10,000 unit PO DAILY 02/03/19 08/16/19 mcg (10,000 unit) capsule finasteride 5 mg tablet 5 mg PO DAILY 02/03/19 08/16/19 omeprazole 20 mg capsule,delayed 20 mg PO DAILY PRN 02/03/19 08/16/19 release olmesartan 20 1 tab PO DAILY 08/16/19 08/16/19 mg-hydrochlorothiazide 12.5 mg tablet sildenafil (pulm.hypertension) 20 40 mg PO DIRECTED 08/16/19 08/16/19 mg tablet Allergies Allergy/AdvReac Type Severity Reaction Status Date / Time penicillin G [PENICILLIN G] Allergy Unknown Rash Verified 10/01/21 02:36 prochlorperazine Allergy Verified 10/01/21 02:36 [From Compazine] Sulfa (Sulfonamide Allergy Rash Verified 10/01/21 02:36 Antibiotics) Review of Systems Review of Systems Narrative: GENERAL: Denies chills, fatigue, malaise, fever, sweats. HEENT: Denies sinus pain, ear pain, sore throat, difficulty swallowing, dizziness. RESPIRATORY: Denies dyspnea, cough, wheezing, hemoptysis, sputum. CARDIOVASCULAR: Denies chest pain, palpitations, orthopnea, edema, GASTROINTESTINAL: See HPI : Denies dysuria, frequency, incontinence, hematuria, urinary retention. MUSCULOSKELETAL: denies weakness, joint pain, or bony pain SKIN: Denies rash, skin lesions, or other NEUROLOGIC: Denies weakness, headache, numbness, change in speech, confusion, seizures, incoordination. PSYCHIATRIC: No concerning psychosocial issues. 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 Well-developed patient, in mild distress. Holding an emesis bag HEAD: Atraumatic. Normocephalic. EYES: Pupils equal round and reactive. Extraocular motions intact. No scleral icterus. No injection or drainage. ENT: Nose without bleeding, purulent drainage. Throat without erythema, tonsillar hypertrophy or exudate. Airway patent. NECK: Trachea midline. Non tender CARDIOVASCULAR: Regular rate and rhythm without murmurs, gallops, or rubs. RESPIRATORY: Clear to auscultation. Breath sounds equal bilaterally. No wheezes, rales, or rhonchi. GASTROINTESTINAL: Abdomen soft, mildly distended, bowel sounds present throughout, no rebound, obturator or psoas. Negative Hoffman's EXTREMITIES: No edema or joint tenderness. BACK: Nontender without deformity or crepitance. No flank tenderness. NEURO: AOx3. SKIN: No rash or erythema of visible areas Initial Vital Signs Initial Vital Signs: Vital Signs Temperature 98.5 F 10/01/21 00:50 Pulse Rate 117 H 10/01/21 00:50 Respiratory Rate 17 10/01/21 00:50 Blood Pressure 168/93 H 10/01/21 00:50 Pulse Oximetry 98 10/01/21 00:50 Course Orders Ordered: Discontinued Medications Sodium Chloride (Normal Saline 0.9%) 1,000 mls @ 1,000 mls/hr IV BOLUS ONE Stop: 10/01/21 03:21 Last Infusion: 10/01/21 04:09 Dose: 0 mls/hr Documented by: Admin: 10/01/21 02:37 Dose: 1,000 mls/hr Documented by: BRODIE Pantoprazole Sodium (Pantoprazole 40 Mg Vial) 40 mg IV NOW ONE Stop: 10/01/21 02:23 Last Admin: 10/01/21 02:36 Dose: 40 mg Documented by: BRODIE Vital Signs Vital signs: Vital Signs - 8 hr 10/01/21 00:50 Temperature 98.5 F Pulse Rate 117 H Respiratory Rate 17 Blood Pressure 168/93 H Pulse Oximetry 98 MDM - Nausea/Vomiting/Diarrhea Lab Data Result diagrams: 10/01/21 01:24 10/01/21 01:24 Labs: Lab Results 10/01/21 10/01/21 10/01/21 Range/Units 01:00 01:24 01:24 WBC 9.9 (4.5-11.0) X10^3/uL RBC 5.14 (4.5-5.9) X10^6/uL Hgb 17.6 H (13.5-17.5) g/dL Hct 50.9 (41-53) % MCV 98.9 (80-100) fL MCH 34.2 H (26-34) PG MCHC 34.6 (30-36) % RDW 13.3 (11.6-14.8) % Plt Count 126 L (150-400) X10^3/uL Neut % (Auto) 94.5 H (50-75) % Lymph % (Auto) 2.8 L (25-40) % [place] % (Auto) 2.2 L (3-14) % Eos % (Auto) 0.1 L (2-4) % Baso % (Auto) 0.4 (0-2) % Neut # (Auto) 9400 H (9605-9074) /uL Lymph # (Auto) 300 L (4894-1168) /uL [place] # (Auto) 200 (0-900) /uL Eos # (Auto) 0 (0-450) /uL Baso # (Auto) 0 (0-100) /uL Sodium 136 L (137-145) mmol/L Potassium 3.5 (3.4-5.1) mmol/L Chloride 103 (98-107) mmol/L Carbon Dioxide 28 (22-32) mmol/L BUN 9 (9-20) mg/dL Creatinine 0.88 (0.66-1.25) mg/dL Estimated GFR > 60.0 (>60) mL/min BUN/Creatinine Ratio 10.2 (6-22) Glucose 143 H (80-110) mg/dL Calcium 9.4 (8.4-10.2) mg/dL Total Bilirubin 1.5 H (0.2-1.3) mg/dL AST 57 (17-59) IU/L ALT 63 H (<50) IU/L Alkaline Phosphatase 85 (38-126) U/L Total Protein 7.4 (6.3-8.2) g/dL Albumin 4.3 (3.5-5.0) g/dL Globulin 3.1 (1.7-4.1) g/dL Albumin/Globulin Ratio 1.4 (1.0-2.8) Lipase 69 (23-300) U/L SARS-CoV-2 (PCR) Negative (Negative) Imaging Data Abdominal x-ray: Radiologist's Impression: [address] [address] XRay Report Signed Patient: Stanton Britton MR#: [id number] : 1950 Acct:[id number] Age/Sex: 71 / M Date of Service: 10/01/21 Loc: ED Accession Number: [id number] ?? Procedure: XR acute abdomen series Ordering Provider: Matthew Ashford D.O. PROCEDURE:? XR ACUTE ABDOMEN SERIES ? INDICATIONS:? nausea, vomiting, diarrhea, multiple surgeries ? TECHNIQUE:? One view chest and two views of the abdomen were acquired.? ? COMPARISON:? [facility], CT, CT ABDOMEN PELVIS W CON, 10/01/2021, 5:15. ? FINDINGS:? ? Surgical changes and devices:? None.? ? Chest:? There are calcified granulomas in the left lower lobe.? Heart size is normal.? No pleural effusions.? No pneumoperitoneum.? ? Abdomen:? Bowel gas pattern is nonobstructive.? No suspicious calcifications.? Visualized solid organ contours appear normal.? ? Bones:? No suspicious bony lesions.? ? IMPRESSION:? Nonobstructive bowel gas pattern. ? No significant discrepancy with the shift nurse manager radiology preliminary report. ? ? ? Dictated by: Piyush Lemons M.D. on 10/01/2021 at 9:08 ? ? Approved by: Piyush Lemons M.D. on 10/01/2021 at 9:10 ? US - abdomen: Radiologist's Impression: [place] [address] Ultrasound Report Signed Patient: Stanton Britton MR#: [id number] : 1950 Acct:[id number] Age/Sex: 71 / M Date of Service: 10/01/21 Loc: ED Accession Number: [id number] ?? Procedure: US abdomen limited Ordering Provider: Matthew Ashford D.O. PROCEDURE: US ABDOMEN LIMITED ? INDICATIONS:? PAIN. NAUSEA AND VOMITING. ELEVATED BILIRUBIN. ? TECHNIQUE:? Real-time focused scanning was performed of the abdomen, with image documentation.? ? COMPARISON:? None. ? FINDINGS:? Liver is prominent in size measuring 18.5 cm.? Liver demonstrates increased hepatic echotexture.? Portal vein is patent and demonstrates normal direction of flow. ? Macro normal gallbladder ? Common bile duct is not visualized, obscured by overlying bowel gas.? Visualized pancreas is normal. ? IMPRESSION:? ? 1. Mild hepatomegaly.? ? Diffusely increased hepatic echotexture. This finding is most likely secondary to hepatic fatty infiltration although other hepatocellular disease may have a similar appearance. Recommend clinical correlation. 2. Normal gallbladder. 3. Common bile duct is obscured by overlying bowel gas.? ? ? No significant discrepancy with the shift nurse manager radiology preliminary report. ? ? Dictated by: Piyush Lemons M.D. on 10/01/2021 at 9:22 ? ? Approved by: Piyush Lemons M.D. on 10/01/2021 at 9:25 ? CT scan - abdomen/pelvis: Radiologist's Impression: Launch?[place] [address] CT Scan Report Addendum Patient: Stanton Britton MR#: [id number] : 1950 Acct:[id number] Age/Sex: 71 / M Date of Service: 10/01/21 Loc: ED Accession Number: [id number] ?? Procedure: CT abdomen pelvis w con Ordering Provider: Matthew Ashford D.O. ADDENDUMThis report includes an Addendum and supersedes previous reports for this exam. ? ? ? PROCEDURE:? CT ABDOMEN PELVIS W CON ? INDICATIONS:? severe abdominal pain ? TECHNIQUE:? After the administration of oral and IV contrast, axial sections were acquired from the lung bases to the pubic symphysis.? Coronal and sagittal reformats were performed.? For radiation dose reduction, the following was used:? automated exposure control, adjustment of mA and/or kV according to patient size. ? COMPARISON:? [facility], ABDOMEN LIMITED, 10/01/2021, 4:33.? [facility], ABDOMEN COMPLETE, 03/31/2016, 8:42. ? FINDINGS:? Image quality:? Excellent.? ? Lung bases:? Unremarkable.? ? Heart:? No significant findings. ? ? ABDOMEN: Liver:? Normal size.? Severe hepatic steatosis.? ? Gallbladder:? Unremarkable.? ? Biliary ducts:? Unremarkable.? ? Pancreas:? Unremarkable.? ? Spleen:? Calcified granulomas in spleen.? ? Adrenal Glands:? Unremarkable.? ? Kidneys and Ureters:? Unremarkable.? ? ? Stomach and Bowel:? Stomach, small bowel loops, and colon are normal in caliber.? Fluid-filled small intestine and colon demonstrate normal caliber.? Diverticulosis without diverticulitis. Peritoneum:? No abnormal intraperitoneal fluid.? No free air.? ? Ventral Wall: ? There is a small fat containing ventral hernia above the umbilicus.? Abdominal Nodes:? No retroperitoneal or mesenteric adenopathy by size criteria.? Vessels:? Aorta and inferior vena cava are normal in size.? Moderate aortic calcifications. ? PELVIS: Pelvic Organs:? Unremarkable.? ? Bladder:? Unremarkable.? ? Pelvic Nodes: No enlarged lymph nodes.? Miscellaneous:? Fat containing right inguinal hernia is noted.? Surgical clips in scrotum.? ? ? Bones:? Degenerative changes in lumbar spine..? IMPRESSION:? ? 1. Diverticulosis without diverticulitis. 2. Fluid-filled small intestine and colon demonstrate normal caliber, which is nonspecific.? No findings to suggest small bowel obstruction. 3. Severe hepatic steatosis. 4. Small fat containing ventral hernia. ? No significant discrepancy with the shift nurse manager radiology preliminary report. ? ? ? Dictated by: Piyush Lemons M.D. on 10/01/2021 at 8:02 ? ? Approved by: Piyush Lemons M.D. on 10/01/2021 at 8:11 ? ? ? ADDENDUM:? To calcified lung nodules are seen in the left lower lobe.? There are calcified infrahilar lymph nodes.? The findings are compatible with remote granulomatous infection. ? Dictated by: Piyush Lemons M.D. on 10/01/2021 at 9:11 ? ? Approved by: Piyush Lemons M.D. on 10/01/2021 at 9:11 ? Addendum Dictated By: Odalys Lemons MD Addendum Signed By: Addendum Cosigned By: DD/ /21/910 TD/TT: 10/01/2109/21/910 PROCEDURE:? CT ABDOMEN PELVIS W CON ? INDICATIONS:? severe abdominal pain ? TECHNIQUE:? After the administration of oral and IV contrast, axial sections were acquired from the lung bases to the pubic symphysis.? Coronal and sagittal reformats were performed.? For radiation dose reduction, the following was used:? automated exposure control, adjustment of mA and/or kV according to patient size. ? COMPARISON:? [facility], ABDOMEN LIMITED, 10/01/2021, 4:33.? [facility], ABDOMEN COMPLETE, 03/31/2016, 8:42. ? FINDINGS:? Image quality:? Excellent.? ? Lung bases:? Unremarkable.? ? Heart:? No significant findings. ? ? ABDOMEN: Liver:? Normal size.? Severe hepatic steatosis.? ? Gallbladder:? Unremarkable.? ? Biliary ducts:? Unremarkable.? ? Pancreas:? Unremarkable.? ? Spleen:? Calcified granulomas in spleen.? ? Adrenal Glands:? Unremarkable.? ? Kidneys and Ureters:? Unremarkable.? ? ? Stomach and Bowel:? Stomach, small bowel loops, and colon are normal in caliber.? Fluid-filled small intestine and colon demonstrate normal caliber.? Diverticulosis without diverticulitis. Peritoneum:? No abnormal intraperitoneal fluid.? No free air.? ? Ventral Wall: ? There is a small fat containing ventral hernia above the umbilicus.? Abdominal Nodes:? No retroperitoneal or mesenteric adenopathy by size criteria.? Vessels:? Aorta and inferior vena cava are normal in size.? Moderate aortic calcifications. ? PELVIS: Pelvic Organs:? Unremarkable.? ? Bladder:? Unremarkable.? ? Pelvic Nodes: No enlarged lymph nodes.? Miscellaneous:? Fat containing right inguinal hernia is noted.? Surgical clips in scrotum.? ? ? Bones:? Degenerative changes in lumbar spine..? IMPRESSION:? ? 1. Diverticulosis without diverticulitis. 2. Fluid-filled small intestine and colon demonstrate normal caliber, which is nonspecific.? No findings to suggest small bowel obstruction. 3. Severe hepatic steatosis. 4. Small fat containing ventral hernia. ? No significant discrepancy with the shift nurse manager radiology preliminary report. ? ? ? Dictated by: Piyush Lemons M.D. on 10/01/2021 at 8:02 ? ? Approved by: Piyush Lemons M.D. on 10/01/2021 at 8:11 ? MDM Narrative Medical decision making narrative: Multiple etiologies for patient's symptoms considered including, but not limited to: 1. Bowel obstruction, given vomiting, change in flatus and distension, however no findings to suggest this on imaging 2. Gallbladder versus pancreatitis, though thought unlikely given lack of classic findings on labs or imaging 3. Ischemic bowel considered but thought unlikely given lack of ongoing pain, certainly not out of proportion to exam, no significant lab abnormalities 4. Enteritis considered highly likely given history, physical, lack of significant findings on labs, nonspecific findings on imaging Patient's symptoms improved over duration of stay with above-stated therapies. Pain is well controlled, he requires no ongoing medications. Nausea and vomiting well controlled, patient tolerating orals. Findings and discharge diagnosis discussed with patient/family followed by verbalization of understanding Return precautions discussed with patient/family whom verbalize understanding. Discharge Plan Departure Patient Disposition: Home Clinical Impression: Nausea & vomiting Instructions: Nausea and Vomiting-Adult Activity Restrictions/Additional Instructions: *You have been diagnosed with [nausea and vomiting]. Thankfully your labs, various imaging modalities, and response to therapies have been very reassuring. There is no indication of a bowel obstruction, pancreatitis, gallbladder disease or other diagnosis that would require a specific or emergent intervention *What to do: *Please continue to take your regular medications as directed. [ x] New medication prescriptions sent to your pharmacy: [[facility] in [place]] A handwritten Rx was faxed as our EMR does not have the ability to electronically transmit this medication [ ] New medication written as a paper prescription [ ] No new medications given *Please follow up with your primary care provider in 2-3 days, call for an appointment. Let them know you were seen in the Emergency Department and that we ask that you be seen in follow up. We will electronically transmit a record of today's note if your PCP is in our system * as we discussed, please consider a clear liquid diet for the next 24-48 hours and then slowly advance as tolerated. Please avoid spicy foods, fatty foods, alcohol, etc. *If you do not have a primary care provider please contact the [facility] Resource line at [phone]. They will ask some questions about your medical history and help get you set up with a doctor in the community. *Return to Emergency Department if you should have any new, worsening or concerning symptoms, such as [fever greater than 101 F, shaking chills, worsening pain, persistent vomiting or other bothersome symptoms] Prescriptions: No Action olmesartan-hydrochlorothiazide 20-12.5 mg tablet 1 tab PO DAILY 0RF Label Comments: TK 1 T PO QD sildenafil (pulm.hypertension) 20 mg Tablet 40 mg PO DIRECTED 0RF metoprolol succinate 100 mg tablet extended release 24 hr 100 mg PO DAILY 0RF allopurinol 100 mg tablet 200 mg PO DAILY 0RF omeprazole 20 mg capsule,delayed release(DR/EC) 20 mg PO DAILY PRN (Reason: Acid Reflux) 0RF cholecalciferol (vitamin D3) 10,000 unit capsule 10,000 unit PO DAILY 0RF Label Comments: BULK BOTTLE BROUGHT IN IS 5000 UNIT CAPS finasteride 5 mg tablet 5 mg PO DAILY 0RF Referrals: Lorenzo Coreas MD [Primary Care Provider] -
[2021-10-01 01:50] LABS: Alanine Aminotransferase 63 IU/L (<50); Albumin 4.3 g/dL (3.5-5.0); Albumin Globulin Ratio 1.4 (1.0-2.8); Alkaline Phosphatase 85 U/L (38-126); Aspartate Aminotransferase 57 IU/L (17-59); BUN Creatinine Ratio 10.2 (6-22); Bilirubin Total 1.5 mg/dL (0.2-1.3); Blood Urea Nitrogen 9 mg/dL (9-20); Calcium 9.4 mg/dL (8.4-10.2); Carbon Dioxide 28 mmol/L (22-32); Chloride 103 mmol/L (98-107); Estimated Glomerular Filt Rate > 60.0 mL/min (>60); Globulin 3.1 g/dL (1.7-4.1); Glucose 143 mg/dL (80-110); HEMOLYSIS 16 (0-50); Lipase 69 U/L (23-300); Potassium 3.5 mmol/L (3.4-5.1); Sodium 136 mmol/L (137-145); Total Protein 7.4 g/dL (6.3-8.2)
--- NOTE | 2021-10-01 02:22 | DI.RAD.S_ITS ---
PROCEDURE: XR ACUTE ABDOMEN SERIES INDICATIONS: nausea, vomiting, diarrhea, multiple surgeries TECHNIQUE: One view chest and two views of the abdomen were acquired. COMPARISON: [facility], CT, CT ABDOMEN PELVIS W CON, 10/01/2021, 5:15. FINDINGS: Surgical changes and devices: None. Chest: There are calcified granulomas in the left lower lobe. Heart size is normal. No pleural effusions. No pneumoperitoneum. Abdomen: Bowel gas pattern is nonobstructive. No suspicious calcifications. Visualized solid organ contours appear normal. Bones: No suspicious bony lesions. IMPRESSION: Nonobstructive bowel gas pattern. No significant discrepancy with the rn night radiology preliminary report. Dictated by: Piyush Lemons M.D. on 10/01/2021 at 9:08 Approved by: Piyush Lemons M.D. on 10/01/2021 at 9:10
[2021-10-01] MEDS: PANTOPRAZOLE 40 MG VIAL IV (02:36)
[2021-10-01] MEDS: SODIUM CHLORIDE 0.9% 1,000 ML 1000 ML IV (02:37)
[2021-10-01 02:59] LABS: COVID19 -Nasal RAPID Negative (Negative)
--- NOTE | 2021-10-01 04:03 | DI.US.S_ITS ---
PROCEDURE: US ABDOMEN LIMITED INDICATIONS: PAIN. NAUSEA AND VOMITING. ELEVATED BILIRUBIN. TECHNIQUE: Real-time focused scanning was performed of the abdomen, with image documentation. COMPARISON: None. FINDINGS: Liver is prominent in size measuring 18.5 cm. Liver demonstrates increased hepatic echotexture. Portal vein is patent and demonstrates normal direction of flow. Macro normal gallbladder Common bile duct is not visualized, obscured by overlying bowel gas. Visualized pancreas is normal. IMPRESSION: 1. Mild hepatomegaly. Diffusely increased hepatic echotexture. This finding is most likely secondary to hepatic fatty infiltration although other hepatocellular disease may have a similar appearance. Recommend clinical correlation. 2. Normal gallbladder. 3. Common bile duct is obscured by overlying bowel gas. No significant discrepancy with the medical records custodian radiology preliminary report. Dictated by: Piyush Lemons M.D. on 10/01/2021 at 9:22 Approved by: Piyush Lemons M.D. on 10/01/2021 at 9:25
--- NOTE | 2021-10-01 05:07 | DI.CT.S_ITS ---
PROCEDURE: CT ABDOMEN PELVIS W CON INDICATIONS: severe abdominal pain TECHNIQUE: After the administration of oral and IV contrast, axial sections were acquired from the lung bases to the pubic symphysis. Coronal and sagittal reformats were performed. For radiation dose reduction, the following was used: automated exposure control, adjustment of mA and/or kV according to patient size. COMPARISON: [facility], , ABDOMEN LIMITED, 10/01/2021, 4:33. [facility], , ABDOMEN COMPLETE, 03/31/2016, 8:42. FINDINGS: Image quality: Excellent. Lung bases: Unremarkable. Heart: No significant findings. ABDOMEN: Liver: Normal size. Severe hepatic steatosis. Gallbladder: Unremarkable. Biliary ducts: Unremarkable. Pancreas: Unremarkable. Spleen: Calcified granulomas in spleen. Adrenal Glands: Unremarkable. Kidneys and Ureters: Unremarkable. Stomach and Bowel: Stomach, small bowel loops, and colon are normal in caliber. Fluid-filled small intestine and colon demonstrate normal caliber. Diverticulosis without diverticulitis. Peritoneum: No abnormal intraperitoneal fluid. No free air. Ventral Wall: There is a small fat containing ventral hernia above the umbilicus. Abdominal Nodes: No retroperitoneal or mesenteric adenopathy by size criteria. Vessels: Aorta and inferior vena cava are normal in size. Moderate aortic calcifications. PELVIS: Pelvic Organs: Unremarkable. Bladder: Unremarkable. Pelvic Nodes: No enlarged lymph nodes. Miscellaneous: Fat containing right inguinal hernia is noted. Surgical clips in scrotum. Bones: Degenerative changes in lumbar spine.. IMPRESSION: 1. Diverticulosis without diverticulitis. 2. Fluid-filled small intestine and colon demonstrate normal caliber, which is nonspecific. No findings to suggest small bowel obstruction. 3. Severe hepatic steatosis. 4. Small fat containing ventral hernia. No significant discrepancy with the overnight stocker radiology preliminary report. Dictated by: Piyush Lemons M.D. on 10/01/2021 at 8:02 Approved by: Piyush Lemons M.D. on 10/01/2021 at 8:11
== END 2021-10-01 07:37 | disposition home or self-care (01) ==
PROVIDERS: Emergency Provider Emergency Medicine; PCP Internal Medicine
DX: R11.2 Nausea with vomiting, unspecified (principal); R10.9 Unspecified abdominal pain; R19.7 Diarrhea, unspecified; Z20.822 Contact with and (suspected) exposure to COVID-19
CPT/HCPCS: 36415; 74022; 74177; 76705; 80053; 83690; 85025; 87635; 96361; 96374; 99284; C9803; C9113; Q9967

== ENCOUNTER 2022-02-19 08:23 | Emergency (ER) | payer MEDICARE, BC, SELFPAY ==
[2022-02-19 08:37] VITALS: BP 145/65; PULSE 75; RESP 18; TEMP 36.6; O2SAT 97; BMI 30.1
--- NOTE | 2022-02-19 08:38 | ED_ITS ---
HPI - Wound/Laceration General Chief Complaint: Wound/Laceration Stated Complaint: fell- right hand lac Time Seen by Provider: 02/19/22 08:38 Source: patient Mode of arrival: Ambulatory Limitations: no limitations History of Present Illness HPI narrative: The patient tripped and fell at home last night, about 10 hours ago. He fell on his extended right hand. He impacted broken ceramic. He lacerated the right l ateral hand. He cleaned the wound himself, dressed wound. Bleeding was initially controlled. When he changes noted dressing this morning, he was bleeding once again. He has severe pain at the site. He has normal flexion extension to the right digits. There is no numbness to the right digits. He has no other injuries or acute illness. He is right-hand dominant. His last tetanus is less than 10 years. Related Data Home Medications Medication Instructions Recorded Confirmed cholecalciferol (vitamin D3) 250 10,000 unit PO DAILY 02/03/19 01/21/22 mcg (10,000 unit) capsule sildenafil (pulm.hypertension) 20 40 mg PO DIRECTED 08/16/19 01/21/22 mg tablet Previous Rx's Medication Instructions Recorded allopurinol 100 mg tablet 200 mg PO DAILY #90 tabs 01/21/22 finasteride 5 mg tablet 5 mg PO DAILY #90 tabs 01/21/22 metoprolol succinate 100 mg 100 mg PO DAILY #90 tabs 01/21/22 tablet,extended release 24 hr omeprazole 20 mg capsule,delayed 20 mg PO DAILY PRN Acid Reflux #90 01/21/22 release caps amlodipine 5 mg tablet 5 mg PO DAILY #90 tabs 01/24/22 Allergies Allergy/AdvReac Type Severity Reaction Status Date / Time penicillin G [PENICILLIN G] Allergy Unknown Rash Verified 01/21/22 13:43 prochlorperazine Allergy Verified 01/21/22 13:43 [From Compazine] Sulfa (Sulfonamide Allergy Rash Verified 01/21/22 13:43 Antibiotics) Review of Systems Constitutional Comments: Right hand injury, no other injuries. No acute illness. Musculoskeletal Comments: See HPI. Right hand injury. Integumentary/Breasts Comments: Right hand laceration. Neurologic Comments: No numbness or tingling to the right hand. 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 leisure activities: other other: I have a passion for maddie seatbelt use: always Smoking Status: Never smoker alcohol intake: current caffeine: Yes (1 cup in AM) Smoking Status: Never smoker alcohol intake frequency: 3 or more drinks per day Substance Use Type: does not use Exam Initial Vital Signs Initial Vital Signs: Vital Signs Temperature 97.9 F 02/19/22 08:37 Pulse Rate 75 02/19/22 08:37 Respiratory Rate 18 02/19/22 08:37 Blood Pressure 145/65 H 02/19/22 08:37 Pulse Oximetry 97 02/19/22 08:37 Oxygen Delivery Method 02/19/22 08:37 Const General: cooperative, healthy appearing, comfortable, well developed and well groomed Skin Other: Laceration to the ulnar side of his right hand. Neuro General: patient alert, patient awake and patient oriented x3 Other: Right hand motor and sensory exam is intact. Extrem Other: V-shaped laceration to the right volar, ulnar hand. The laceration is approximately 1.5 x 1 cm. A small flap is raised. The size palpated, no obvious foreign body. No contamination to the scene. No active bleeding. The edges of the laceration well approximated. Flexor tendons in the right 4th and 5th fingers are intact. Capillary refill to the tip with 5th digits is normal. Psych Appearance: grossly normal Procedures Laceration Repair Laceration 1: Time of procedure: 08:45 Site: hand Side (If applicable): right Size (cm): 2.5 Description: flap Depth: simple, single layer Pre-repair: wound explored, irrigated extensively and deep structures intact Skin layer closed with: dermabond Course Course Course Narrative: The patient's wound was successfully closed with Dermabond. Once the glue was dry, a nonadhesive bandage was applied by his nurse. Patient tolerated proced ure well. Discharge Plan Departure Patient Disposition: Home Clinical Impression: Laceration of hand, right Instructions: DI for Minor Laceration Activity Restrictions/Additional Instructions: Your wound was closed with Dermabond. Keep the bandage in place for 24 hours. Once the bandage is off, you may bathe normally, but avoid prolonged submersion such as swimming or doing dishes. The glue edges will pull up in about a week. The glue may be removed at that time. You will unlikely require follow-up. Return here as necessary. Prescriptions: No Action amlodipine 5 mg tablet 5 mg PO DAILY Qty: 90 3RF allopurinol 100 mg tablet 200 mg PO DAILY Qty: 90 3RF finasteride 5 mg tablet 5 mg PO DAILY Qty: 90 3RF metoprolol succinate 100 mg tablet extended release 24 hr 100 mg PO DAILY Qty: 90 3RF omeprazole 20 mg capsule,delayed release(DR/EC) 20 mg PO DAILY PRN (Reason: Acid Reflux) Qty: 90 3RF sildenafil (pulm.hypertension) 20 mg Tablet 40 mg PO DIRECTED cholecalciferol (vitamin D3) 10,000 unit capsule 10,000 unit PO DAILY Label Comments: BULK BOTTLE BROUGHT IN IS 5000 UNIT CAPS Referrals: Nelson Hinton MD [Primary Care Provider] - Visit Report Forms: Patient Portal/API
== END 2022-02-19 09:11 | disposition home or self-care (01) ==
PROVIDERS: Emergency Provider Emergency Medicine; PCP Family Medicine
DX: S61.411A Laceration without foreign body of right hand, initial encounter (principal); W26.9XXA Contact with unspecified sharp object(s), initial encounter
CPT/HCPCS: 12001; 99282

== ENCOUNTER → 2022-03-12 14:41 | Outpatient (CLI) | payer MEDICARE, BC, SELFPAY ==
--- NOTE | 2022-03-12 14:43 | DI.ECHO.S_ITS ---
[place] [facility] +---------+ : : [address] [place] : : : : [id number] : : : : Phone: [phone]+ Echocardiogram Report + + :Name: EVANGELINA GUSMAN Study Date: 03/12/2022 Height: 71.5 in: :[facility] ReadingLocation: Weight: 215 lb : : Gender: Male BSA: 2.2 m2 : :: 1950 Age: 71 yrs BP: 139/79 mmHg: :Reason For Study: AORTIC ARCH ANEURYSM : :Ordering Physician: KAN, : :MIYA Performed By: Caryn Hussein : :Referring: MIYA OMER : + + Interpretation Summary 1) Normal left ventricular thickness, size, wall motion, and systolic function (EF 60-65%). 2) Normal right ventricular size and function. 3) No significant valvular abnormalities. 4) The ascending aorta is mildly enlarged at 4.0cm. Stable since prior few echos. 5) Compared to the Echo done 01/02/2021, no significant change. Procedure: A two-dimensional transthoracic echocardiogram with color flow and Doppler was performed. The study quality was technically adequate. There is no prior echocardiogram noted for this patient. The patient was in sinus rhythm with heart rates between 67-73 bpm during the exam. Left Ventricle: The left ventricle is normal in size and wall thickness. The ejection fraction is estimated to be 60-65%. Left ventricular systolic function appears normal without focal wall motion abnormalities. Diastolic parameters suggest a relaxation abnormality of the left ventricle, consistent with probable normal filling pressures. Right Ventricle: The right ventricle is normal in size and function. Atria: The left atrial size is normal. Right atrial size is normal. There is no Doppler evidence for an interatrial shunt. Mitral Valve: The mitral valve is normal in structure and function. There is a flat closure plane of the the mitral valve leaflets. There is trace mitral regurgitation. Aortic Valve: The aortic valve is trileaflet. The aortic valve opens well. There is no aortic valve stenosis. No aortic regurgitation is present. Tricuspid Valve: The tricuspid valve is normal in structure and function. There is trace tricuspid regurgitation. Pulmonic Valve: The pulmonic valve leaflets are thin and pliable; valve motion is normal. There is mild pulmonic regurgitation. Great Vessels: The aortic root is normal size. The ascending aorta is mildly enlarged. The IVC is of normal diameter and collapses greater than 50% with a sniff. This suggests a low right atrial pressure of 3 mm Hg. Pericardium/ Pleura There is no pericardial effusion. There is no pleural effusion. MMode/2D Measurements & Calculations LVIDd: 4.7 cm LVOT diam: 2.3 cm LVIDs: 2.9 cm Ao root diam: 3.7 cm FS: 38.6 % asc Aorta Diam: 4.0 cm EPSS: 0.71 cm IVSd: 0.96 cm LVPWd: 1.0 cm LV lobo. diameter/BSA (cm/m^2): 2.1 LV sys. diameter/BSA (cm/m^2): 1.3 LA A2 area: 20.8 cm2 RA long axis: 5.5 cm LA A4 area: 20.7 cm2 RA area: 17.5 cm2 LA length (vol): 5.7 cm RA vol: 47.5 ml LA vol: 63.6 ml RA : 21.8 ml/m2 LA vol index: 29.1 ml/m2 IVC diam: 1.0 cm RVD1 (basal): 4.0 cm RVD2 (mid): 3.2 cm TAPSE: 1.7 cm Doppler Measurements & Calculations Ao V2 max: 96.1 cm/sec LVOT Max Miguel: 95.0 cm/sec Ao V2 mean: 66.0 cm/sec LV V1 max P.6 mmHg Ao max P.7 mmHg LV V1 VTI: 17.9 cm Ao mean P.0 mmHg MARJAN(I,D): 4.2 cm2 Ao V2 VTI: 18.1 cm MARJAN(V,D): 4.2 cm2 sev ratio: 0.99 MARJAN indexed to BSA (cm^2/m^2): 1.9 MV E max miguel: 58.5 cm/sec PA V2 max: 96.6 cm/sec MV A max miguel: 62.5 cm/sec PA V2 mean: 61.0 cm/sec MV E/A: 0.94 PA mean P.7 mmHg Med Peak E' Miguel: 6.4 cm/sec PA Accel Time: 0.10 sec E/E' med: 9.2 Lat Peak E' Miguel: 8.2 cm/sec E/E' lat: 7.2 E/e' average: 8.2 MV dec time: 0.24 sec SVLVOT): 75.7 ml Reading Physician:04:26 PM
== END ==
PROVIDERS: PCP Family Medicine; Referring Provider Family Medicine; Visit Provider Family Medicine
DX: I71.2 Thoracic aortic aneurysm, without rupture (principal); I51.7 Cardiomegaly
CPT/HCPCS: 93306

== ENCOUNTER → 2022-05-02 13:05 | Outpatient (CLI) | payer MEDICARE, BC, SELFPAY ==
[2022-05-02 14:49] LABS: Hemoglobin A1C% w Est Avg Glu 5.3 % (4.0-6.0)
[2022-05-02 14:50] LABS: Add Manual Diff / Slide Review NO; Basophils Absolute Auto 0 /uL (0-100); Basophils Percent Auto 0.7 % (0-2); Eosinophils Absolute Auto 100 /uL (0-450); Eosinophils Percent Auto 1.7 % (2-4); Hemoglobin 18.6 g/dL (13.5-17.5); Lymphocytes Absolute Auto 1400 /uL (1100-4500); Mean Corpuscular HGB Conc 35.1 % (30-36); Mean Corpuscular Hemoglobin 34.4 PG (26-34); Mean Corpuscular Volume 98.1 fL (80-100); Monocytes Absolute Auto 400 /uL (0-900); Monocytes Percent Auto 7.5 % (3-14); Neutrophils Absolute Auto 3900 /uL (1500-7000); Neutrophils Percent Auto 66.1 % (50-75); Platelet Count 128 X10^3/uL (150-400); Red Cell Distribution Width 13.1 % (11.6-14.8)
[2022-05-02 15:03] LABS: Alanine Aminotransferase 102 IU/L (<50); Albumin 4.4 g/dL (3.5-5.0); Albumin Globulin Ratio 1.3 (1.0-2.8); Alkaline Phosphatase 107 U/L (38-126); Aspartate Aminotransferase 110 IU/L (17-59); BUN Creatinine Ratio 11.8 (6-22); Bilirubin Total 0.8 mg/dL (0.2-1.3); Blood Urea Nitrogen 9 mg/dL (9-20); Calcium 9.2 mg/dL (8.4-10.2); Carbon Dioxide 32 mmol/L (22-32); Chloride 101 mmol/L (98-107); Estimated Glomerular Filt Rate > 60 mL/min (>60); Gamma Glutamyl Transpeptidase 305 U/L (15-73); Globulin 3.5 g/dL (1.7-4.1); Glucose 103 mg/dL (80-110); HEMOLYSIS < 15 (0-50); Potassium 3.7 mmol/L (3.4-5.1); Sodium 140 mmol/L (137-145); Total Protein 7.9 g/dL (6.3-8.2); Uric Acid 4.4 mg/dL (3.5-8.5)
[2022-05-02 15:33] LABS: Prostate Specific Antigen Scrn 0.157 ng/mL (0.1-4.0)
[2022-05-02 15:38] LABS: TSH w/ Reflex to FT4 2.67 uIU/mL (0.47-4.68)
[2022-05-02 15:53] LABS: Vitamin B12 486 pg/mL (239-931)
[2022-05-03 05:02] LABS: HBsAg Screen Negative (Negative); Hepatitis A Antibody IgM Negative (Negative); Hepatitis B Core Antibody IgM Negative (Negative); Hepatitis C Antibody <0.1 s/co ratio (0.0-0.9)
[2022-05-06 17:03] LABS: Creatinine Urine Random 189.7 mg/dL
[2022-05-06 17:08] LABS: Microalbumi Creatinin Ratio Ur 3.6 ug/mg CR (<30); Microalbumin Urine Random 0.7 mg/dL (0-1.6)
== END ==
PROVIDERS: PCP Family Medicine; Referring Provider Family Medicine; Visit Provider Family Medicine
DX: F10.20 Alcohol dependence, uncomplicated (principal); Z12.5 Encounter for screening for malignant neoplasm of prostate; I10 Essential (primary) hypertension; K76.0 Fatty (change of) liver, not elsewhere classified; M10.9 Gout, unspecified; N40.0 Benign prostatic hyperplasia without lower urinary tract symptoms; E53.8 Deficiency of other specified B group vitamins
CPT/HCPCS: 36415; 80053; 80074; 82043; 82570; 82607; 82977; 83036; 84443; 84550; 85025; G0103

== ENCOUNTER → 2022-05-28 10:59 | Outpatient (CLI) | payer MEDICARE, BC, SELFPAY ==
--- NOTE | 2022-05-28 11:01 | DI.US.S_ITS ---
PROCEDURE: US ABDOMEN COMPLETE INDICATIONS: Hepatic steatosis TECHNIQUE: Real-time scanning was performed of the abdominal and retroperitoneal organs, with image documentation. COMPARISON: [facility], MR, MR LUMBAR SPINE WO CON, 12/03/2018, 10:46. [facility], US, US ABDOMEN LIMITED, 10/01/2021, 4:33. [facility], CT, CT ABDOMEN PELVIS W CON, 10/01/2021, 5:15. FINDINGS: Liver: Moderate to severe hepatic steatosis. No focal hepatic mass demonstrated.. Gallbladder: Normal. Biliary ducts: Nondilated. Pancreas: Visualized portions of the pancreas are sonographically normal. Spleen: Spleen is normal in size and homogeneous in echotexture. Kidneys: Indeterminate partially exophytic lobular contour abnormality at the lateral aspect of the left kidney measuring approximately 3 cm and was not demonstrated on the 10/01/2021 CT or the ultrasound. IMPRESSION: Moderate to severe hepatic steatosis. Possible mass or cyst in the lateral aspect of the left kidney. Renal protocol CT examination is recommended. Dictated by: Koffi Ahmadi M.D. on 05/28/2022 at 15:43 Approved by: Koffi Ahmadi M.D. on 05/28/2022 at 15:55
== END ==
PROVIDERS: PCP Family Medicine; Referring Provider Family Medicine; Visit Provider Family Medicine
DX: K76.0 Fatty (change of) liver, not elsewhere classified (principal); F10.288 Alcohol dependence with other alcohol-induced disorder; I10 Essential (primary) hypertension
CPT/HCPCS: 76700

== ENCOUNTER 2022-05-29 16:59 | Emergency (ER) | payer MEDICARE, BC, SELFPAY ==
[2022-05-29 17:15] VITALS: BP 170/79; PULSE 78; RESP 18; TEMP 36.9; O2SAT 98; BMI 30.4
--- NOTE | 2022-05-29 17:22 | DI.US.S_ITS ---
PROCEDURE: US PERIPH VENOUS LOW EXTREM RT INDICATIONS: knee pain and swelling TECHNIQUE: Real-time imaging, as well as color and pulse Doppler interrogation, were performed of the lower extremity deep veins from the inguinal ligament to the popliteal fossa. COMPARISON: None. FINDINGS: The common femoral, femoral and popliteal veins are normally compressible, and free of intraluminal thrombus. Color and pulse Doppler demonstrate normal phasic intraluminal flow. There is normal augmentation response to distal compression maneuver. Fluid collection in posterior medial aspect of right knee is seen measures 3.2 x 1.7 x 1.8 cm in size. No internal vascularity. IMPRESSION: 1. No evidence of DVT in visualized right lower extremity veins. 2. Suggestion of a right-sided popliteal cyst as above. Dictated by: Jared Albrecht M.D. on 05/29/2022 at 18:04 Approved by: Jared Albrecht M.D. on 05/29/2022 at 18:05
--- NOTE | 2022-05-29 18:18 | ED_ITS ---
HPI - Extremity Problem General Chief complaint: Extremity Problem,Nontraumatic Stated complaint: RT knee pain and swelling Time Seen by Provider: 05/29/22 18:17 Source: patient Mode of arrival: Ambulatory History of Present Illness HPI Narrative: 71-year-old male nonsmoker with history of hypertension and prior clot presents for evaluation of pain and swelling of his right knee and is concerned about DVT given recent long distance flight. He states that he is noted swelling behind his knee and increased pain with ambulation and palpation. She denies any redness or warmth. He denies any known injury. He is had no chest pain or s hortness of breath. He denies dizziness, weakness or lightheadedness. He denies any fever or chills. He has no numbness or tingling. He does state that over the past few weeks he has been riding his stationary bike with significantly increased frequency Related Data Home Medications Medication Instructions Recorded Confirmed cholecalciferol (vitamin D3) 250 10,000 unit PO DAILY 02/03/19 04/21/22 mcg (10,000 unit) capsule sildenafil (pulm.hypertension) 20 40 mg PO DIRECTED 08/16/19 04/21/22 mg tablet Previous Rx's Medication Instructions Recorded metoprolol succinate 100 mg 100 mg PO DAILY #90 tabs 01/21/22 tablet,extended release 24 hr omeprazole 20 mg capsule,delayed 20 mg PO DAILY PRN Acid Reflux #90 01/21/22 release caps finasteride 5 mg tablet 5 mg PO DAILY #90 tabs 03/20/22 allopurinol 100 mg tablet 200 mg PO DAILY #180 tabs 04/08/22 amlodipine 2.5 mg tablet 2.5 mg PO DAILY #90 tabs 04/24/22 amlodipine 5 mg tablet 5 mg PO DAILY #90 tabs 04/24/22 Allergies Allergy/AdvReac Type Severity Reaction Status Date / Time penicillin G [PENICILLIN G] Allergy Unknown Rash Verified 05/29/22 17:19 prochlorperazine Allergy Verified 05/29/22 17:19 [From Compazine] Sulfa (Sulfonamide Allergy Rash Verified 05/29/22 17:19 Antibiotics) Review of Systems Review of Systems Narrative: GENERAL: Denies chills, fatigue, malaise, fever, sweats. HEENT: Denies sinus pain, ear pain, sore throat, difficulty swallowing, dizziness. RESPIRATORY: Denies dyspnea, cough, wheezing, hemoptysis, sputum. CARDIOVASCULAR: Denies chest pain, palpitations, orthopnea, edema, GASTROINTESTINAL: Denies nausea, vomiting, abdominal pain, diarrhea, constipation, melena. : Denies dysuria, frequency, incontinence, hematuria, urinary retention. MUSCULOSKELETAL: See HPI SKIN: Denies rash, skin lesions, or other NEUROLOGIC: Denies weakness, headache, numbness, change in speech, confusion, seizures, incoordination. PSYCHIATRIC: No concerning psychosocial issues. 12 point review of systems is negative except for those stated above Patient History Medical History Alcohol dependence Anemia Aortic arch aneurysm BPH (benign prostatic hyperplasia) Chicken pox Chronic back pain GERD (gastroesophageal reflux disease) Gout (~2012) Gouty arthritis Hepatic steatosis History of colon cancer in adulthood History of pulmonary embolism Hypertension Obstructive sleep apnea of adult Surgical History Anesthesia History of artificial lens replacement (~06/13/21) History of cataract removal with insertion of prosthetic lens (~10/2009) History of right hemicolectomy History of rotator cuff surgery History of vitrectomy (~05/16/21) Family History Father Cancer Mother Fall Hypertension History of heart disease Grandmother Biliary cirrhosis Social History marital status: details: to Patricia, lives in [place] number of children: 3 household members: spouse lives independently: Yes caregiver/support person: No housing: house education level: other occupational status: other 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 Extraoccular muscles are intact bilaterally. There is no subconjunctival hemorrhage or exudate. CHEST: Lungs are clear to auscultation bilaterally and free of wheezes, rales, or rhonchi. Heart rate is regular rhythm, there are no murmurs, clicks, rubs, or gallops. There is no chest wall tenderness. ABD: Abdomen is soft and nontender. There is no guarding or rebound. Bowel sounds are normal in all 4 quadrants. There is no mass or organomegaly. EXT: Full but painful range of motion of right knee with moderate swelling and medial joint line tenderness. There is a fullness and tenderness in the popliteal fossa but no noted joint effusion, erythema, lymphangitis nor calf swelling, pain or redness SKIN: Warm, pink, and dry. No erythema or rash Initial Vital Signs Initial Vital Signs: Vital Signs Temperature 98.4 F 05/29/22 17:15 Pulse Rate 78 05/29/22 17:15 Respiratory Rate 18 05/29/22 17:15 Blood Pressure 170/79 H 05/29/22 17:15 Pulse Oximetry 98 05/29/22 17:15 Oxygen Delivery Method 05/29/22 17:15 Course Orders Ordered: ED Orders 05/29/22 17:22 US periph venous low extrem rt Stat Vital Signs Vital signs: Vital Signs - 8 hr 05/29/22 17:15 Temperature 98.4 F Pulse Rate 78 Respiratory Rate 18 Blood Pressure 170/79 H Pulse Oximetry 98 Oxygen Delivery Method Room Air MDM - Extremity (Nontraumatic) Imaging Data US - DVT: Radiologist's Impression: Close Vascular Ultrasound (Signed) Jared Albrecht - 05/29/22 Abdomen Ultrasound (Signed) Koffi Ahmadi - 05/28/22 Echocardiogram Ultrasound (Signed) Shefali Unger - 03/12/22 Abdomen/Pelvis CT (Addendum) Odalys Lemons - 10/01/21 Abdomen Ultrasound (Signed) Odalys Lemons - 10/01/21 Chest/Abdomen X-ray (Signed) Odalys Lemons - 10/01/21 Echocardiogram Ultrasound (Signed) Shefali Unger - 01/02/21 Chest X-Ray (Signed) Rachelle Kelsey - 08/16/19 Hip X-Ray (Signed) Mattie Garcia - 05/13/19 Lumbar Spine MRI (Signed) Charo Jalloh - 12/03/18 Echocardiogram Ultrasound (Signed) Shefali Unger - 12/03/18 [address] [address] Ultrasound Report Signed Patient: Stanton Britton MR#: [id number] : 1950 Acct:[id number] Age/Sex: 71 / M Date of Service: 05/29/22 Loc: ED Accession Number: [id number] ?? Procedure: US periph venous low extrem rt Ordering Provider: Gustavo Sorensen D.O. PROCEDURE:? US PERIPH VENOUS LOW EXTREM RT ? INDICATIONS:? knee pain and swelling ? TECHNIQUE:? Real-time imaging, as well as color and pulse Doppler interrogation, were performed of the lower extremity deep veins from the inguinal ligament to the popliteal fossa.? ? COMPARISON:? None. ? FINDINGS:? The common femoral, femoral and popliteal veins are normally compressible, and free of intraluminal thrombus.? Color and pulse Doppler demonstrate normal phasic intraluminal flow.? There is normal augmentation response to distal compression maneuver. ? ? Fluid collection in posterior medial aspect of right knee is seen measures 3.2 x 1.7 x 1.8 cm in size.? No internal vascularity. ? IMPRESSION:? 1. No evidence of DVT in visualized right lower extremity veins. 2. Suggestion of a right-sided popliteal cyst as above.? ? ? Dictated by: Jared Albrecht M.D. on 05/29/2022 at 18:04 ? ? Approved by: Jared Albrecht M.D. on 05/29/2022 at 18:05 ? Discharge Plan Departure Patient Disposition: Home Clinical Impression: Nguyễn's cyst Instructions: DI for Nguyễn Cyst Activity Restrictions/Additional Instructions: *You have been diagnosed with [right knee Nguyễn cyst] *What to do: *Please continue to take your regular medications as directed. [ ] New medication prescriptions sent to your pharmacy: [ ] [ ] New medication written as a paper prescription [ ] No new medications given * please contact Dr. Toro as [facility], call the office and let them know that you were seen in the emergency department and we would like you seen in follow-up *Return to Emergency Department if you should have any new, worsening or concerning symptoms Prescriptions: No Action finasteride 5 mg tablet 5 mg PO DAILY Qty: 90 3RF allopurinol 100 mg tablet 200 mg PO DAILY Qty: 180 3RF amlodipine 2.5 mg tablet 2.5 mg PO DAILY Qty: 90 3RF Rx Instructions: take with 5 mg tablet amlodipine 5 mg tablet 5 mg PO DAILY Qty: 90 3RF Rx Instructions: take with 2.5 mg metoprolol succinate 100 mg tablet extended release 24 hr 100 mg PO DAILY Qty: 90 3RF omeprazole 20 mg capsule,delayed release(DR/EC) 20 mg PO DAILY PRN (Reason: Acid Reflux) Qty: 90 3RF sildenafil (pulm.hypertension) 20 mg Tablet 40 mg PO DIRECTED cholecalciferol (vitamin D3) 10,000 unit capsule 10,000 unit PO DAILY Label Comments: BULK BOTTLE BROUGHT IN IS 5000 UNIT CAPS Referrals: Celia Toro MD [Physician] - Nelson Hinton MD [Primary Care Provider] - Visit Report Forms: Patient Portal/API
== END 2022-05-29 18:44 | disposition home or self-care (01) ==
PROVIDERS: Emergency Provider Emergency Medicine; PCP Family Medicine
DX: M71.21 Synovial cyst of popliteal space [Baker], right knee (principal)
CPT/HCPCS: 93971; 99283

== ENCOUNTER → 2022-06-01 11:38 | Outpatient (CLI) | payer MEDICARE, BC, SELFPAY ==
--- NOTE | 2022-06-01 11:40 | DI.CT.S_ITS ---
PROCEDURE: CT ABDOMEN RENAL PROTOCOL INDICATIONS: renal mass TECHNIQUE: Optional 5 mm thick noncontrast images acquired from the diaphragm to the iliac crests. After the administration of intravenous contrast, 5 mm thick images again acquired from the diaphragm to the iliac crests in the arterial and urographic phases. 5 mm thick coronal and sagittal reformats were then acquired. For radiation dose reduction, the following was used: automated exposure control, adjustment of mA and/or kV according to patient size. COMPARISON: [facility], US, US ABDOMEN COMPLETE, 05/28/2022, 11:12. [facility], CT, CT ABDOMEN PELVIS W CON, 10/01/2021, 5:15. FINDINGS: Image quality: Excellent. Lung bases: Lung bases are clear. Heart size is normal. Genitourinary: Lobulation of the left renal cortex is again noted, similar to the prior CT. No evidence of mass lesion. No hydronephrosis or calculi present bilaterally. Right kidney shows a small exophytic cyst measuring 1.3 cm. Urinary bladder was not included on the exam Other solid organs: Liver is normal in size and enhancement. Hepatic fatty infiltration present. Multiple splenic calcified granulomas. Gallbladder unremarkable . Biliary system is non dilated. Pancreas enhances normally. Spleen is normal in size and enhancement. No adrenal nodules. Peritoneum and bowel: Unenhanced bowel loops are normal in wall thickness and caliber. No free fluid or air. Nodes and vessels: No retroperitoneal or mesenteric adenopathy by size criteria. Aorta and inferior vena cava are normal in caliber. Bones: No suspicious bony lesions. No vertebral body compression fractures. Miscellaneous: No ventral hernias. IMPRESSION: 1. Lobulation of the left renal cortex is an anatomic variation. No evidence of mass lesion. Findings are stable from the prior CT. 2. Hepatic fatty infiltration Approved by: Demetri Joseph M.D. on 06/01/2022 at 12:38
== END ==
PROVIDERS: PCP Family Medicine; Referring Provider Family Medicine; Visit Provider Family Medicine
DX: N28.89 Other specified disorders of kidney and ureter (principal); K76.0 Fatty (change of) liver, not elsewhere classified
CPT/HCPCS: 74170; Q9967

== ENCOUNTER → 2022-06-06 09:11 | Outpatient (CLI) | payer MEDICARE, BC, SELFPAY ==
--- NOTE | 2022-06-06 09:12 | DI.RAD.S_ITS ---
PROCEDURE: XR KNEE RT 3V INDICATIONS: right knee pain TECHNIQUE: 3 views of the knee were acquired. COMPARISON: None. FINDINGS: Bones: No fractures or dislocations. Mild tricompartmental osteoarthritis is seen. No patellar subluxation. No suspicious bony lesions. Soft tissues: There is moderate suprapatellar joint effusion. No suspicious soft tissue calcifications. IMPRESSION: No acute right knee fracture or dislocation. Mild tricompartmental osteoarthritis and moderate suprapatellar joint effusion. Dictated by: Jared Albrecht M.D. on 06/06/2022 at 9:50 Approved by: Jared Albrecht M.D. on 06/06/2022 at 9:50
== END ==
PROVIDERS: PCP Family Medicine; Referring Provider Family Medicine; Visit Provider Family Medicine
DX: M17.11 Unilateral primary osteoarthritis, right knee (principal); M25.461 Effusion, right knee; M25.561 Pain in right knee
CPT/HCPCS: 73562

== ENCOUNTER → 2022-08-26 13:24 | Outpatient (CLI) | payer MEDICARE, BC, SELFPAY ==
[2022-08-26 14:59] LABS: Alanine Aminotransferase 109 IU/L (<50); Albumin 4.1 g/dL (3.5-5.0); Albumin Globulin Ratio 1.5 (1.0-2.8); Alkaline Phosphatase 97 U/L (38-126); Aspartate Aminotransferase 102 IU/L (17-59); BUN Creatinine Ratio 14.5 (6-22); Bilirubin Total 0.9 mg/dL (0.2-1.3); Blood Urea Nitrogen 10 mg/dL (9-20); Carbon Dioxide 26 mmol/L (22-32); Chloride 100 mmol/L (98-107); Estimated Glomerular Filt Rate > 60 mL/min (>60); Gamma Glutamyl Transpeptidase 429 U/L (15-73); Globulin 2.8 g/dL (1.7-4.1); Glucose 130 mg/dL (80-110); HEMOLYSIS < 15 (0-50); Potassium 3.8 mmol/L (3.4-5.1); Sodium 139 mmol/L (137-145); Total Protein 6.9 g/dL (6.3-8.2)
== END ==
PROVIDERS: PCP Family Medicine; Referring Provider Family Medicine; Visit Provider Family Medicine
DX: F10.20 Alcohol dependence, uncomplicated (principal); F10.288 Alcohol dependence with other alcohol-induced disorder; I10 Essential (primary) hypertension; K76.0 Fatty (change of) liver, not elsewhere classified
CPT/HCPCS: 36415; 80053; 82977

== ENCOUNTER → 2023-08-08 10:44 | Outpatient (CLI) | payer MEDICARE, BC, SELFPAY ==
[2023-08-08 11:33] LABS: Alanine Aminotransferase 70 IU/L (<50); Albumin 4.2 g/dL (3.5-5.0); Albumin Globulin Ratio 1.3 (1.0-2.8); Alkaline Phosphatase 75 U/L (38-126); Aspartate Aminotransferase 75 IU/L (17-59); BUN Creatinine Ratio 14.7 (6-22); Bilirubin Total 0.9 mg/dL (0.2-1.3); Blood Urea Nitrogen 11 mg/dL (9-20); Calcium 9.4 mg/dL (8.4-10.2); Carbon Dioxide 31 mmol/L (22-32); Chloride 100 mmol/L (98-107); Cholesterol 182 mg/dL (140-199); Estimated Glomerular Filt Rate > 60 mL/min (>60); Gamma Glutamyl Transpeptidase 259 U/L (15-73); Globulin 3.2 g/dL (1.7-4.1); Glucose 113 mg/dL (80-110); HDL Cholesterol 52 mg/dL (40-60); LDL Cholesterol Calculated 96 mg/dL (<100); Potassium 4.3 mmol/L (3.4-5.1); Sodium 138 mmol/L (137-145); Total Protein 7.4 g/dL (6.3-8.2); Triglycerides 172 mg/dL (35-150); Uric Acid 4.9 mg/dL (3.5-8.5)
[2023-08-08 11:34] LABS: Add Manual Diff / Slide Review NO; Basophils Absolute Auto 0 /uL (0-100); Basophils Percent Auto 0.7 % (0-2); Eosinophils Absolute Auto 200 /uL (0-450); Eosinophils Percent Auto 4.4 % (2-4); Hematocrit 48.6 % (41-53); Hemoglobin 16.8 g/dL (13.5-17.5); Lymphocytes Absolute Auto 1300 /uL (1100-4500); Lymphocytes Percent Auto 24.3 % (25-40); Mean Corpuscular HGB Conc 34.5 % (30-36); Mean Corpuscular Hemoglobin 33.9 PG (26-34); Monocytes Absolute Auto 400 /uL (0-900); Neutrophils Absolute Auto 3400 /uL (1500-7000); Neutrophils Percent Auto 62.6 % (50-75); Platelet Count 135 X10^3/uL (150-400); Red Blood Cell Count 4.96 X10^6/uL (4.5-5.9); White Blood Cell Count 5.4 X10^3/uL (4.5-11.0)
[2023-08-08 11:35] LABS: HEMOLYSIS 59 (0-50)
[2023-08-08 12:02] LABS: TSH w/ Reflex to FT4 3.41 uIU/mL (0.47-4.68)
== END ==
PROVIDERS: PCP Family Medicine; Referring Provider Family Medicine; Visit Provider Family Medicine
DX: N40.0 Benign prostatic hyperplasia without lower urinary tract symptoms (principal); I10 Essential (primary) hypertension; K76.0 Fatty (change of) liver, not elsewhere classified; M10.9 Gout, unspecified; F10.288 Alcohol dependence with other alcohol-induced disorder
CPT/HCPCS: 36415; 80053; 80061; 82977; 84443; 84550; 85025

== ENCOUNTER → 2023-11-23 12:26 | Outpatient (CLI) | payer MEDICARE, BC, SELFPAY ==
--- NOTE | 2023-11-23 12:27 | DI.ECHO.S_ITS ---
[facility] +---------+ : : [address] : [place] : : : : [id number] : : : : Phone: [phone]---------+ Echocardiogram Report + + :Name: EVANGELINA GUSMAN Study Date: 11/23/2023 Height: 71 in : :[facility] ReadingLocation: Weight: 226 lb : : Gender: Male BSA: 2.2 m2 : :: 1950 Age: 73 yrs BP: 160/80 mmHg: :Reason For Study: AORTIC ANEURYSM : :Ordering Physician: KAN, : :MIYA Performed By: Koffi Ricks : :Referring: MIYA OMER : + + Interpretation Summary Borderline concentric left ventricular hypertrophy with ejection fraction 60- 65%. No significant valvular abnormality. The ascending aorta is mildly enlarged (3.9 cm -stable) Comparison is made with the echocardiogram of 03/12/2022, no significant change. Procedure: A two-dimensional transthoracic echocardiogram with color flow and Doppler was performed. The study quality was technically adequate. Comparison is made with the echocardiogram of 03/12/2022. The patient was in normal sinus rhythm during the exam. The heart rate ranged between 70-82 bpm during the study. Left Ventricle: The left ventricle is normal in size. There is borderline concentric left ventricular hypertrophy. The ejection fraction is estimated to be 60-65%. There are no focal wall motion abnormalities. Right Ventricle: The right ventricle is normal in size and function. Atria: The left atrium is borderline dilated. The right atrium is mildly dilated. The interatrial septum grossly appears intact with no obvious evidence for an atrial septal defect. Mitral Valve: The mitral valve is normal in structure and function. There is no mitral valve stenosis. There is no mitral regurgitation noted. Aortic Valve: The aortic valve is trileaflet. The aortic valve opens well. There is no aortic valve stenosis. No aortic regurgitation is present. Tricuspid Valve: The tricuspid valve is normal in structure and function. There is no tricuspid stenosis. There is a trace or physiologic amount of tricuspid regurgitation. Pulmonic Valve: The pulmonic valve is not well seen, but is grossly normal. There is no pulmonic valvular stenosis. There is mild pulmonic regurgitation. Great Vessels: The aortic root is normal size. The ascending aorta is mildly enlarged. The aortic arch is normal in size. The IVC is of normal diameter and collapses greater than 50% with a sniff. This suggests a low right atrial pressure of 3 mm Hg. Pericardium/ Pleura There is no pericardial effusion. There is no pleural effusion. MMode/2D Measurements & Calculations LVIDd: 5.0 cm LVOT diam: 2.2 cm LVIDs: 3.4 cm Ao root diam: 3.5 cm FS: 32.4 % asc Aorta Diam: 3.9 cm IVSd: 1.1 cm Ao Arch Diam (Prox Trans): 3.4 cm LVPWd: 1.1 cm LV lobo. diameter/BSA (cm/m^2): 2.2 LV sys. diameter/BSA (cm/m^2): 1.5 LA A2 area: 19.7 cm2 RA long axis: 5.8 cm LA A4 area: 20.0 cm2 RA area: 23.1 cm2 LA length (vol): 5.8 cm RA vol: 78.4 ml LA vol: 57.6 ml RA : 35.3 ml/m2 LA vol index: 25.9 ml/m2 IVC diam: 2.0 cm RVD1 (basal): 4.3 cm RVD2 (mid): 3.8 cm TAPSE: 2.5 cm Doppler Measurements & Calculations Ao V2 max: 143.6 cm/sec LVOT Max Miguel: 117.5 cm/sec Ao V2 mean: 97.1 cm/sec LV V1 max P.5 mmHg Ao max P.2 mmHg LV V1 VTI: 22.9 cm Ao mean P.3 mmHg MARJAN(I,D): 3.0 cm2 Ao V2 VTI: 28.5 cm MARJAN(V,D): 3.1 cm2 sev ratio: 0.81 MARJAN indexed to BSA (cm^2/m^2): 1.4 MV E max miguel: 81.8 cm/sec PA V2 max: 93.1 cm/sec MV A max miguel: 76.5 cm/sec PA V2 mean: 65.9 cm/sec MV E/A: 1.1 PA mean P.9 mmHg Med Peak E' Miguel: 6.9 cm/sec PA pr(Accel): 29.3 mmHg E/E' med: 11.8 Lat Peak E' Miguel: 8.3 cm/sec E/E' lat: 9.9 E/e' average: 10.9 MV dec time: 0.15 sec SVLVOT): 85.6 ml Electronically signed by: Jaren Cota on Reading Physician:11/23/2023 06:12 PM
== END ==
LOC: ECHO 12:27
PROVIDERS: PCP Family Medicine; Referring Provider Family Medicine; Visit Provider Family Medicine
DX: I71.20 Thoracic aortic aneurysm, without rupture, unspecified (principal); I77.89 Other specified disorders of arteries and arterioles
CPT/HCPCS: 93306

== ENCOUNTER → 2023-12-30 10:34 | Outpatient (CLI) | payer MEDICARE, BC, SELFPAY ==
[2023-12-30 12:01] LABS: Add Manual Diff / Slide Review NO; Basophils Absolute Auto 100 /uL (0-100); Basophils Percent Auto 2.5 % (0-2); Eosinophils Absolute Auto 200 /uL (0-450); Eosinophils Percent Auto 3.6 % (2-4); Hematocrit 51.1 % (41-53); Hemoglobin 17.6 g/dL (13.5-17.5); Lymphocytes Absolute Auto 1200 /uL (1100-4500); Lymphocytes Percent Auto 24.6 % (25-40); Mean Corpuscular HGB Conc 34.4 % (30-36); Mean Corpuscular Hemoglobin 33.2 PG (26-34); Mean Corpuscular Volume 96.7 fL (80-100); Monocytes Absolute Auto 500 /uL (0-900); Monocytes Percent Auto 9.9 % (3-14); Neutrophils Absolute Auto 2900 /uL (1500-7000); Neutrophils Percent Auto 59.4 % (50-75); Platelet Count 146 X10^3/uL (150-400); Red Blood Cell Count 5.28 X10^6/uL (4.5-5.9); Red Cell Distribution Width 13.4 % (11.6-14.8); White Blood Cell Count 4.8 X10^3/uL (4.5-11.0)
[2023-12-30 12:20] LABS: Alanine Aminotransferase 69 IU/L (<50); Albumin 4.5 g/dL (3.5-5.0); Albumin Globulin Ratio 1.6 (1.0-2.8); Alkaline Phosphatase 82 U/L (38-126); Aspartate Aminotransferase 60 IU/L (17-59); BUN Creatinine Ratio 16.2 (6-22); Bilirubin Total 0.6 mg/dL (0.2-1.3); Blood Urea Nitrogen 12 mg/dL (9-20); Calcium 9.5 mg/dL (8.4-10.2); Carbon Dioxide 31 mmol/L (22-32); Chloride 103 mmol/L (98-107); Estimated Glomerular Filt Rate > 60 mL/min (>60); Gamma Glutamyl Transpeptidase 170 U/L (15-73); Globulin 2.8 g/dL (1.7-4.1); Glucose 99 mg/dL (80-110); HEMOLYSIS < 15 (0-50); Potassium 3.8 mmol/L (3.4-5.1); Sodium 141 mmol/L (137-145); Total Protein 7.3 g/dL (6.3-8.2)
[2023-12-30 12:49] LABS: Prostate Specific Antigen Scrn 0.159 ng/mL (0.1-4.0)
[2023-12-30 12:53] LABS: Hepatitis B Surface Antigen NEGATIVE s/c (NEGATIVE)
[2023-12-30 13:12] LABS: Hep C Virus Ab w/Reflex Quant NEGATIVE s/c (NEGATIVE)
[2024-01-01 01:09] LABS: Hepatitis B Core AB w/Reflex Negative (Negative)
[2024-01-01 06:53] LABS: Hepatitis B Surf Ab Qualitativ Non Reactive (.)
== END ==
PROVIDERS: PCP Family Medicine; Referring Provider Family Medicine; Visit Provider Family Medicine
DX: I10 Essential (primary) hypertension (principal); K76.0 Fatty (change of) liver, not elsewhere classified; Z12.5 Encounter for screening for malignant neoplasm of prostate; F10.20 Alcohol dependence, uncomplicated; I71.20 Thoracic aortic aneurysm, without rupture, unspecified
CPT/HCPCS: 36415; 80053; 82977; 85025; 86704; 86706; 86803; 87340; G0103

== ENCOUNTER → 2024-05-30 09:11 | Outpatient (CLI) | payer MEDICARE, BC, SELFPAY ==
--- NOTE | 2024-05-30 09:12 | DI.US.S_ITS ---
PROCEDURE: US ABDOMEN COMPLETE INDICATIONS: Gastric Polyps TECHNIQUE: Real-time scanning was performed of the abdominal and retroperitoneal organs, with image documentation. COMPARISON: [facility], US, US ABDOMEN LIMITED, 10/01/2021, 4:33. [facility], US, US ABDOMEN COMPLETE, 05/28/2022, 11:12. FINDINGS: Liver: The liver demonstrates mildly enlarged size. The liver demonstrates generalized mildly increased echogenicity. This decreases ultrasound sensitivity for detection of hepatic masses. The main portal vein demonstrates normal size and demonstrates normal appearing, hepatopetal flow. Gallbladder: No findings of gallstones or sludge are seen. The gallbladder wall is not thickened, measuring 3 mm or less. No specific pericholecystic fluid is seen. The sonographic Hoffman sign is negative. Biliary ducts: Intrahepatic bile ducts are non-dilated. Extrahepatic bile duct caliber measures 4-5 mm. Normal is 6-7 mm or less in diameter, or 10 mm or less post-cholecystectomy. Pancreas: Visualized portions of the pancreas are sonographically normal. Spleen: Spleen is normal in size and homogeneous in echotexture. Kidneys: Kidneys are normal in size and echotexture. Right kidney measures 11.9 cm long; left kidney measures 11.8 cm long. No hydronephrosis or nephrolithiasis. No solid masses. Aorta: Visualized aorta is normal in caliber at less than 3 cm. Iliacs: Proximal common iliac arteries are normal in caliber at less than 2.5 cm. IVC: Intrahepatic inferior vena cava is patent. Miscellaneous: No free abdominal fluid. IMPRESSION: Gastric polyps are not evaluated on this ultrasound study. No significant liver abnormality is seen. There is mild fatty liver infiltration seen. Dictated by: Ilia Dueñas M.D. on 05/30/2024 at 16:51 Approved by: Ilia Dueñas M.D. on 05/30/2024 at 16:52
== END ==
PROVIDERS: PCP Family Medicine; Referring Provider Family Medicine; Visit Provider Family Medicine
DX: K31.7 Polyp of stomach and duodenum (principal); K76.0 Fatty (change of) liver, not elsewhere classified
CPT/HCPCS: 76700

== ENCOUNTER → 2024-06-03 11:13 | Outpatient (CLI) | payer MEDICARE, BC, SELFPAY ==
[2024-06-03 12:45] LABS: Add Manual Diff / Slide Review NO; Basophils Absolute Auto 0 /uL (0-100); Basophils Percent Auto 0.7 % (0-2); Eosinophils Absolute Auto 100 /uL (0-450); Eosinophils Percent Auto 2.3 % (2-4); Hematocrit 47.7 % (41-53); Hemoglobin 16.5 g/dL (13.5-17.5); Lymphocytes Absolute Auto 1000 /uL (1100-4500); Lymphocytes Percent Auto 19.3 % (25-40); Mean Corpuscular HGB Conc 34.6 % (30-36); Mean Corpuscular Hemoglobin 32.2 PG (26-34); Mean Corpuscular Volume 93.2 fL (80-100); Monocytes Absolute Auto 500 /uL (0-900); Monocytes Percent Auto 9.2 % (3-14); Neutrophils Absolute Auto 3500 /uL (1500-7000); Neutrophils Percent Auto 68.5 % (50-75); Platelet Count 131 X10^3/uL (150-400); Red Blood Cell Count 5.12 X10^6/uL (4.5-5.9); Red Cell Distribution Width 14.1 % (11.6-14.8); White Blood Cell Count 5.1 X10^3/uL (4.5-11.0)
[2024-06-03 12:57] LABS: INR 1.1 (0.9-1.3); Prothrombin Time 12.6 SECONDS (9.4-12.5)
[2024-06-03 13:08] LABS: Alanine Aminotransferase 31 IU/L (<50); Albumin 4.2 g/dL (3.5-5.0); Albumin Globulin Ratio 1.7 (1.0-2.8); Alkaline Phosphatase 88 U/L (38-126); Aspartate Aminotransferase 40 IU/L (17-59); BUN Creatinine Ratio 12.8 (6-22); Bilirubin Total 1.2 mg/dL (0.2-1.3); Blood Urea Nitrogen 12 mg/dL (9-20); Calcium 9.7 mg/dL (8.4-10.2); Carbon Dioxide 26 mmol/L (22-32); Chloride 101 mmol/L (98-107); Estimated Glomerular Filt Rate > 60 mL/min (>60); Gamma Glutamyl Transpeptidase 126 U/L (15-73); Globulin 2.5 g/dL (1.7-4.1); Glucose 117 mg/dL (80-110); HEMOLYSIS < 15 (0-50); Potassium 3.9 mmol/L (3.4-5.1); Sodium 136 mmol/L (137-145); Total Protein 6.7 g/dL (6.3-8.2)
== END ==
PROVIDERS: PCP Family Medicine; Referring Provider Family Medicine; Visit Provider Family Medicine
DX: K76.0 Fatty (change of) liver, not elsewhere classified (principal); I10 Essential (primary) hypertension; F10.20 Alcohol dependence, uncomplicated; K92.2 Gastrointestinal hemorrhage, unspecified
CPT/HCPCS: 36415; 80053; 82977; 85025; 85610

== ENCOUNTER 2024-12-06 16:19 | Emergency (ER) | payer MEDICARE, BC, SELFPAY ==
[2024-12-06] VITALS (11 sets, daily range): BP systolic 134–177; BP diastolic 65–84; PULSE 69–116; RESP 16–32; TEMP 36.8; O2SAT 93–95; BMI 31.1
--- NOTE | 2024-12-06 16:27 | EKG_ITS ---
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
--- NOTE | 2024-12-06 16:27 | DI.RAD.S_ITS ---
PROCEDURE: XR CHEST 1V INDICATIONS: chest pain TECHNIQUE: One view of the chest was acquired. COMPARISON: [facility], CR, XR CHEST 2V, 08/16/2019, 13:27. FINDINGS: Surgical changes and devices: None. Lungs and pleura: Lungs are clear. Stable benign calcified granulomas. No pleural effusions or pneumothorax. Mediastinum: Mediastinal contours appear normal. Heart size is normal. Bones and chest wall: No suspicious bony lesions. Overlying soft tissues appear unremarkable. IMPRESSION: No acute cardiopulmonary abnormality is seen. Approved by: Butch Solano M.D. on 12/06/2024 at 16:53
[2024-12-06] MEDS: ASPIRIN 81 MG CHEW TAB 324 MG PO (16:57)
[2024-12-06 17:02] LABS: Add Manual Diff / Slide Review NO; Basophils Absolute Auto 100 /uL (0-100); Basophils Percent Auto 0.8 % (0-2); Eosinophils Absolute Auto 100 /uL (0-450); Hematocrit 52.4 % (41-53); Hemoglobin 18.4 g/dL (13.5-17.5); Lymphocytes Absolute Auto 1800 /uL (1100-4500); Lymphocytes Percent Auto 19.3 % (25-40); Mean Corpuscular HGB Conc 35.1 % (30-36); Mean Corpuscular Hemoglobin 34.3 PG (26-34); Mean Corpuscular Volume 97.7 fL (80-100); Monocytes Absolute Auto 800 /uL (0-900); Monocytes Percent Auto 8.4 % (3-14); Neutrophils Absolute Auto 6700 /uL (1500-7000); Neutrophils Percent Auto 70.5 % (50-75); Platelet Count 151 X10^3/uL (150-400); Red Blood Cell Count 5.36 X10^6/uL (4.5-5.9); Red Cell Distribution Width 13.2 % (11.6-14.8); White Blood Cell Count 9.5 X10^3/uL (4.5-11.0)
[2024-12-06 17:12] LABS: INR 1.1 (0.9-1.3)
[2024-12-06 17:15] LABS: PTT Partial Thromboplastin Tim 32 SECONDS (25.1-36.5)
[2024-12-06 17:20] LABS: Alanine Aminotransferase 76 IU/L (<50); Albumin 4.8 g/dL (3.5-5.0); Albumin Globulin Ratio 1.5 (1.0-2.8); Alkaline Phosphatase 100 U/L (38-126); Aspartate Aminotransferase 85 IU/L (17-59); Bilirubin Total 1.3 mg/dL (0.2-1.3); Blood Urea Nitrogen 16 mg/dL (9-20); Calcium 9.7 mg/dL (8.4-10.2); Carbon Dioxide 26 mmol/L (22-32); Chloride 101 mmol/L (98-107); Creatine Kinase 147 U/L (55-170); Estimated Glomerular Filt Rate > 60 mL/min (>60); Globulin 3.1 g/dL (1.7-4.1); Glucose 127 mg/dL (80-110); HEMOLYSIS 23 (0-50); Lipase 114 U/L (23-300); Magnesium 1.7 mg/dL (1.6-2.3); Potassium 3.5 mmol/L (3.4-5.1); Sodium 139 mmol/L (137-145); Total Protein 7.9 g/dL (6.3-8.2)
[2024-12-06 17:32] LABS: NT-proBNP (BNP-Adult 18+) 99 pg/mL (<125); Troponin I < 0.012 ng/mL (0.01-0.034)
--- NOTE | 2024-12-06 19:56 | ED_ITS ---
HPI - Arrhythmia/Palpitations General Chief Complaint: Arrhythmia/Palpitations Stated Complaint: rapid heart beat, dizziness, high pulse Time Seen by Provider: 12/06/24 19:56 History of Present Illness HPI narrative: 74-year-old male with a past medical history of hypertension, PVCs, colon cancer, PE not on any anticoagulation comes into the ED from home for evaluation of fatigue. States that he started feeling this way after his workout at 10:00 a.m.. He states he has been doing the same workup for the past 2 years he has never had these symptoms. States that he felt more fatigued and dizzy therefore decided come into the ED for further evaluation treatment. He denies any actual chest pain shortness breath fever chills nausea vomiting abdominal pain or any other GI/ symptoms time. He states that he is completely back to baseline, he states that this might have been an issue with his alcoholism, he states that he has been drinking a little bit more over the past 2 days watching the ball game, however he states that since his time here in the emergency department he feels completely normal, he states he does not feel like what he did whenever he had his pulmonary embolism, he states this was due to history of colon cancer which he is not undergoing treatment and is in remission currently. He states that he is currently undergoing treatment for his alcoholism does not want to seek any additional interventions or help at this time. Feels completely normal, states he wants to go home Related Data Home Medications Medication Instructions Recorded Confirmed cholecalciferol (vitamin D3) 250 10,000 unit PO DAILY 02/03/19 08/22/24 mcg (10,000 unit) capsule Previous Rx's Medication Instructions Recorded sildenafil (pulm.hypertension) 20 40 mg (2 x 20 mg) PO DAILY #90 tabs 05/05/23 mg tablet metoprolol succinate 100 mg 100 mg PO DAILY #90 tabs 01/19/24 tablet,extended release 24 hr amlodipine 2.5 mg tablet 2.5 mg PO DAILY #90 tabs 01/26/24 omeprazole 20 mg capsule,delayed 20 mg PO DAILY PRN Acid Reflux #90 03/07/24 release caps finasteride 5 mg tablet 5 mg PO DAILY #90 tabs 04/04/24 allopurinol 100 mg tablet 200 mg (2 x 100 mg) PO DAILY #180 04/25/24 tabs amlodipine 5 mg tablet 5 mg PO DAILY #90 tabs 04/25/24 hydrochlorothiazide 12.5 mg tablet 12.5 mg PO DAILY PRN edema #60 tabs 08/09/24 Allergies Allergy/AdvReac Type Severity Reaction Status Date / Time penicillin G [PENICILLIN G] Allergy Unknown Rash Verified 08/09/24 16:11 prochlorperazine Allergy Verified 08/09/24 16:11 [From Compazine] Sulfa (Sulfonamide Allergy Rash Verified 08/09/24 16:11 Antibiotics) Review of Systems Review of Systems Narrative: General: Denies fever, chills, weight loss HEENT: Denies headache, eye drainage, eye irritation, head trauma, sore throat, voice change Cardiovascular: Positive palpitations, Denies any chest pain, tachycardia Respiratory: Denies any shortness of breath, cough, wheeze, stridor GI/: Denies any abdominal pain, nausea, vomiting, diarrhea, bright red blood per rectum, melanotic stools, urinary frequency, urinary retention, dysuria, hematuria MSK: Denies any joint pain, muscle pains, swelling Skin: Denies any rashes, lesions, discoloration Neuro: Positive lightheadedness, dizziness Denies any headache, fainting, weakness Psych: Denies SI/HI Patient History Medical History Chronic back pain Chicken pox Anemia Aortic arch aneurysm BPH (benign prostatic hyperplasia) Gout (~2012) Hepatic steatosis History of colon cancer in adulthood History of pulmonary embolism Gouty arthritis GERD (gastroesophageal reflux disease) Alcohol dependence Hypertension Obstructive sleep apnea of adult Surgical History Anesthesia History of artificial lens replacement (~06/13/21) History of vitrectomy (~05/16/21) History of cataract removal with insertion of prosthetic lens (~10/2009) History of rotator cuff surgery History of right hemicolectomy Family History Father Cancer Mother Fall Hypertension History of heart disease Grandmother Biliary cirrhosis Social History marital status: details: to Patricia, lives in [place] number of children: 3 household members: spouse lives independently: Yes caregiver/support person: No housing: house education level: other occupational status: other 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 leisure activities: other other: I have a passion for maddie seatbelt use: always alcohol intake: current caffeine: Yes (1 cup in AM) Smoking Status: Never smoker alcohol intake frequency: 3 or more drinks per day Alcohol type: wine Exam Narrative Exam Narrative: General: Cooperative, well-developed, not in acute distress HEENT: Normocephalic, atraumatic, PERRLA, normal sclera, eyelids normal Neck: Active full range of motion, atraumatic Chest: Normal to inspection, negative crepitus, no overlying erythema ecchymosis Respiratory: Normal respiratory effort, not in acute respiratory distress, clear to auscultation bilaterally negative cough, wheeze, tachypnea, rhonchi, rales Cardiology: Regular rate rhythm negative gallop, murmur, rubs GI/: No tenderness to palpation, soft, non rigid, normal to inspection, exam deferred MSK: Full active range of motion in all 4 extremities, atraumatic, no tenderness to palpation of any bony prominences Skin: No rashes or lesions noted Neuro: Alert awake oriented x3, moves all 4 extremities spontaneously, cranial nerves intact, able to answer all questions appropriately follows commands appropriately Psych: Cooperative, negative suicidal or homicidal ideations Initial Vital Signs Initial Vital Signs: Vital Signs Temperature 98.2 F 12/06/24 16:22 Pulse Rate 115 H 12/06/24 16:22 Respiratory Rate 18 12/06/24 16:22 Blood Pressure 170/80 H 12/06/24 16:22 Pulse Oximetry 94 12/06/24 16:22 Oxygen Delivery Method Room Air 12/06/24 16:22 Course Orders Ordered: ED Orders 12/06/24 16:27 XR chest 1V Stat EKG-12 Lead Stat 12/06/24 16:41 Complete Blood Count AUTO DIFF Stat Comprehensive Metabolic Panel Stat Lipase Stat Magnesium Stat NT-proBNP (BNP-Adult 18+) Stat PTT Partial Thromboplastin Delbert Stat Prothrombin Time INR Stat Troponin & CK Cardiac Panel Stat 12/06/24 19:37 Troponin I Stat Discontinued Medications Aspirin (Aspirin 81 Mg Chew Tab) 324 mg PO NOW ONE Stop: 12/06/24 16:28 Last Admin: 12/06/24 16:57 Dose: 324 mg Documented By: MARK Vital Signs Vital signs: Vital Signs - 8 hr 12/06/24 16:22 12/06/24 16:35 12/06/24 16:37 Temperature 98.2 F Pulse Rate 115 H 114 H Respiratory Rate 18 32 H Blood Pressure 170/80 H 177/84 H Pulse Oximetry 94 Oxygen Delivery Method Room Air 12/06/24 16:37 12/06/24 17:00 12/06/24 17:00 Temperature Pulse Rate 116 H 108 H Respiratory Rate 16 21 Blood Pressure 161/75 H Pulse Oximetry 95 94 Oxygen Delivery Method Room Air 12/06/24 17:30 12/06/24 17:30 12/06/24 18:00 Temperature Pulse Rate 105 H Respiratory Rate 19 Blood Pressure 152/71 H 150/72 H Pulse Oximetry 93 Oxygen Delivery Method 12/06/24 18:00 Temperature Pulse Rate 103 H Respiratory Rate 20 Blood Pressure Pulse Oximetry 94 Oxygen Delivery Method Room Air MDM - Arrhythmia/Palpitations Differential Diagnosis Differential diagnosis: Likely palpitations, artial fibrillation, ventricular premature beats, supraventricular tachycardia and other (ACS, pneumonia, electrolyte abnormality) Lab Data 12/06/24 16:41 12/06/24 16:41 Labs: Lab Results 12/06/24 Range/Units 16:41 WBC 9.5 (4.5-11.0) X10^3/uL RBC 5.36 (4.5-5.9) X10^6/uL Hgb 18.4 H (13.5-17.5) g/dL Hct 52.4 (41-53) % MCV 97.7 (80-100) fL MCH 34.3 H (26-34) PG MCHC 35.1 (30-36) % RDW 13.2 (11.6-14.8) % Plt Count 151 (150-400) X10^3/uL Neut % (Auto) 70.5 (50-75) % Lymph % (Auto) 19.3 L (25-40) % [place] % (Auto) 8.4 (3-14) % Eos % (Auto) 1.0 L (2-4) % Baso % (Auto) 0.8 (0-2) % Neut # (Auto) 6700 (0961-5673) /uL Lymph # (Auto) 1800 (2509-9235) /uL [place] # (Auto) 800 (0-900) /uL Eos # (Auto) 100 (0-450) /uL Baso # (Auto) 100 (0-100) /uL PT 12.0 (9.4-12.5) SECONDS INR 1.1 (0.9-1.3) APTT 32 (25.1-36.5) SECONDS Sodium 139 (137-145) mmol/L Potassium 3.5 (3.4-5.1) mmol/L Chloride 101 (98-107) mmol/L Carbon Dioxide 26 (22-32) mmol/L BUN 16 (9-20) mg/dL Creatinine 1.00 (0.66-1.25) mg/dL Estimated GFR > 60 (>60) mL/min BUN/Creatinine Ratio 16.0 (6-22) Glucose 127 H (80-110) mg/dL Calcium 9.7 (8.4-10.2) mg/dL Magnesium 1.7 (1.6-2.3) mg/dL Total Bilirubin 1.3 (0.2-1.3) mg/dL AST 85 H (17-59) IU/L ALT 76 H (<50) IU/L Alkaline Phosphatase 100 (38-126) U/L Total Creatine Kinase 147 (55-170) U/L Troponin I < 0.012 (0.01-0.034) ng/mL NT-Pro-B Natriuret Pep 99 (<125) pg/mL Total Protein 7.9 (6.3-8.2) g/dL Albumin 4.8 (3.5-5.0) g/dL Globulin 3.1 (1.7-4.1) g/dL Albumin/Globulin Ratio 1.5 (1.0-2.8) Lipase 114 (23-300) U/L Imaging Data Chest x-ray: Radiologist's Impresson: [address] [address] XRay Report Signed Patient: Stanton Britton MR#: [id number] : 1950 Acct:[id number] Age/Sex: 74 / M Date of Service: 12/06/24 Loc: ED Accession Number: [id number] Procedure: XR chest 1V Ordering Provider: Manuelito Davis MD PROCEDURE: XR CHEST 1V INDICATIONS: chest pain TECHNIQUE: One view of the chest was acquired. COMPARISON: [facility], CR, XR CHEST 2V, 08/16/2019, 13:27. FINDINGS: Surgical changes and devices: None. Lungs and pleura: Lungs are clear. Stable benign calcified granulomas. No pleural effusions or pneumothorax. Mediastinum: Mediastinal contours appear normal. Heart size is normal. Bones and chest wall: No suspicious bony lesions. Overlying soft tissues appear unremarkable. IMPRESSION: No acute cardiopulmonary abnormality is seen. MDM Narrative Medical decision making narrative: 74-year-old male with a past medical history of hypertension, PVCs, colon cancer, PE not on any anticoagulation comes into the ED from home for evaluation of fatigue. States that he started feeling this way after his workout at 10:00 a.m.. He states he has been doing the same workup for the past 2 years he has never had these symptoms. States that he felt more fatigued and dizzy therefore decided come into the ED for further evaluation treatment. He denies any actual chest pain shortness breath fever chills nausea vomiting abdominal pain or any other GI/ symptoms time. He states that he is completely back to baseline, he states that this might have been an issue with his alcoholism, he states that he has been drinking a little bit more over the past 2 days watching the ball game, however he states that since his time here in the emergency department he feels completely normal, he states he does not feel like what he did whenever he had his pulmonary embolism, he states this was due to history of colon cancer which he is not undergoing treatment and is in remission currently. He states that he is currently undergoing treatment for his alcoholism does not want to seek any additional interventions or help at this time. 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 He was given strict return precautions he verbalized understanding of this and agrees to being discharged home with outpatient follow up. Patient did have lab work imaging EKG performed here, EKG nonischemic in nature, chest x-ray without any acute cardiopulmonary embolism troponin negative x2, no leukocytosis remainder of lab work unremarkable Discharge Plan Departure Patient Disposition: Home Clinical Impression: Palpitations, Light-headed Activity Restrictions/Additional Instructions: Please follow up with your primary care doctor Please read the discharge instructions sheet carefully and bring all papers to all doctor follow-up visits, as it may contain information that your doctor may want to see. Disease processes change and evolve, if your symptoms worsen or if you develop any new symptoms that are concerning to you please return for evaluation. Your evaluation today does not show any evidence of any life- threatening/serious illnesses requiring admission to the hospital or surgery. Please follow-up with your doctor for re-evaluation in approximately 1 day. Seek immediate medical attention for any worrisome symptoms. *If you do not have a primary care provider please contact the [facility] Resource line at [phone]. They will ask some questions about your medical history and help get you set up with a doctor in the community. Prescriptions: No Action sildenafil (pulm.hypertension) 20 mg tablet 40 mg PO DAILY Qty: 90 2RF Rx Instructions: 2 tabs one hour pre intercourse metoprolol succinate 100 mg tablet extended release 24 hr 100 mg PO DAILY Qty: 90 3RF amlodipine 2.5 mg tablet 2.5 mg PO DAILY Qty: 90 3RF Rx Instructions: take with 5 mg tablet omeprazole 20 mg capsule,delayed release(DR/EC) 20 mg PO DAILY PRN (Reason: Acid Reflux) Qty: 90 3RF finasteride 5 mg tablet 5 mg PO DAILY Qty: 90 3RF allopurinol 100 mg tablet 200 mg PO DAILY Qty: 180 3RF amlodipine 5 mg tablet 5 mg PO DAILY Qty: 90 3RF Rx Instructions: take with 2.5 mg hydrochlorothiazide 12.5 mg tablet 12.5 mg PO DAILY PRN (Reason: edema) Qty: 60 1RF cholecalciferol (vitamin D3) 10,000 unit capsule 10,000 unit PO DAILY Patient Comments: BULK BOTTLE BROUGHT IN IS 5000 UNIT CAPS Referrals: Nelson Hinton MD [Primary Care Provider] - Stand Alone Forms: Patient Portal/API/Survey
[2024-12-06 20:12] LABS: Troponin I < 0.012 ng/mL (0.01-0.034)
== END 2024-12-06 20:33 | disposition home or self-care (01) ==
PROVIDERS: Emergency Medicine; Emergency Provider Student in an Organized Health Care Education/Training Program; PCP Family Medicine
DX: R00.2 Palpitations (principal); R53.83 Other fatigue; R42 Dizziness and giddiness
CPT/HCPCS: 36415; 71045; 80053; 82550; 83690; 83735; 83880; 84484; 85025; 85610; 85730; 93005; 99284

== ENCOUNTER → 2025-08-11 15:55 | Outpatient (CLI) | payer MEDICARE, BC, SELFPAY ==
--- NOTE | 2025-08-11 15:57 | DI.RAD.S_ITS ---
PROCEDURE: XR CERVICAL SPINE 2V OR 3V INDICATIONS: coccyx pain TECHNIQUE: 3 view(s) of the cervical spine were acquired. COMPARISON: None. FINDINGS: Bones: No fractures or dislocations to the T1 level. The lateral masses of C1 appear intact on the odontoid view. No suspicious bony lesions. Normal alignment. Moderate to marked C5-6 and C6-7 disc narrowing. Multilevel facet arthropathy is most severe in the mid cervical spine. Soft tissues: No prevertebral soft tissue swelling. IMPRESSION: No acute fracture. Normal alignment. Multilevel degenerative disc and facet arthropathy as described above. Dictated by: Mariana Henderson M.D. on 08/13/2025 at 20:17 Approved by: Mariana Henderson M.D. on 08/13/2025 at 20:18
--- NOTE | 2025-08-11 15:57 | DI.RAD.S_ITS ---
PROCEDURE: XR SACRUM COCCYX MIN 2V INDICATIONS: coccyx pain TECHNIQUE: 3 views of the sacrum and coccyx acquired. COMPARISON: None. FINDINGS: Bones: No fractures or dislocations. No suspicious bony lesions. Lower lumbar degenerative disease. Mild bilateral SI joint sclerosis. Soft tissues: Visualized bowel gas pattern is normal. No suspicious soft tissue densities. IMPRESSION: No acute or subacute fracture. Dictated by: Mariana Henderson M.D. on 08/13/2025 at 20:18 Approved by: Mariana Henderson M.D. on 08/13/2025 at 20:19
== END ==
PROVIDERS: PCP Family Medicine; Referring Provider Family Medicine; Visit Provider Family Medicine
DX: M54.2 Cervicalgia (principal); M47.812 Spondylosis without myelopathy or radiculopathy, cervical region; M53.3 Sacrococcygeal disorders, not elsewhere classified; I10 Essential (primary) hypertension; F10.288 Alcohol dependence with other alcohol-induced disorder; K76.0 Fatty (change of) liver, not elsewhere classified; M10.9 Gout, unspecified; N40.1 Benign prostatic hyperplasia with lower urinary tract symptoms; R60.0 Localized edema
CPT/HCPCS: 72040; 72220